=== PATIENT | female | born 1945 | race Caucasian/White ===

== ENCOUNTER 2020-03-04 09:17 | Inpatient (IN) | payer MEDICARE, BC ==
[2020-03-04] MEDS ORDERED: Sodium Chloride 0.9% 10 ML Syringe FLUSH PRN ×4 (09:55→10:30)
[2020-03-04] MEDS ORDERED: Acetaminophen 325 MG Tab PO PRN (09:55)
[2020-03-04] MEDS ORDERED: Sodium Chloride 0.9% 50 ML IV SCH (09:55)
[2020-03-04] MEDS: cefTRIAXone 1 GM Vial IVPUSH SCH (12:01)
[2020-03-04] MEDS: carBAMazepine 200 MG Tab PO SCH (21:42)
[2020-03-05] MEDS: Omeprazole 20 MG Cap.CR PO SCH (07:53)
[2020-03-05] MEDS: Potassium Chloride 10 MEQ Tab.ER PO SCH (08:44)
[2020-03-05] MEDS: carBAMazepine 200 MG Tab PO SCH ×2 (08:44→20:25)
[2020-03-05] MEDS: Sertraline 50 MG Tab PO SCH (08:44)
[2020-03-05] MEDS ORDERED: Azithromycin 250 MG Tab PO SCH (09:00)
[2020-03-05] MEDS: cefTRIAXone 1 GM Vial IVPUSH SCH (11:39)
[2020-03-06] MEDS: Omeprazole 20 MG Cap.CR PO SCH (07:56)
[2020-03-06 08:31] LABS: ANION GAP 12.2 mmol/L (5-15); CHLORIDE,CL 106 mmol/L (98-115); SODIUM,NA 139 mmol/L (136-145)
[2020-03-06] MEDS: Sertraline 50 MG Tab PO SCH (09:21)
[2020-03-06] MEDS: carBAMazepine 200 MG Tab PO SCH ×2 (09:21→20:27)
[2020-03-06] MEDS: Potassium Chloride 10 MEQ Tab.ER PO SCH (09:21)
[2020-03-06] MEDS: cefTRIAXone 1 GM Vial IVPUSH SCH (11:08)
[2020-03-07] MEDS: carBAMazepine 200 MG Tab PO SCH ×2 (08:08→20:24)
[2020-03-07] MEDS: Omeprazole 20 MG Cap.CR PO SCH (08:08)
[2020-03-07] MEDS: Sertraline 50 MG Tab PO SCH (08:09)
[2020-03-07] MEDS: Potassium Chloride 10 MEQ Tab.ER PO SCH (08:10)
[2020-03-07] MEDS: cefTRIAXone 1 GM Vial IVPUSH SCH (10:01)
[2020-03-08] MEDS: Omeprazole 20 MG Cap.CR PO SCH (08:04)
[2020-03-08] MEDS: carBAMazepine 200 MG Tab PO SCH ×2 (08:04→19:59)
[2020-03-08] MEDS: Potassium Chloride 10 MEQ Tab.ER PO SCH (08:05)
[2020-03-08] MEDS: Sertraline 50 MG Tab PO SCH (08:05)
[2020-03-08] MEDS: cefTRIAXone 1 GM Vial IVPUSH SCH (10:26)
[2020-03-08 13:45] LABS: ANION GAP 12.1 mmol/L (5-15); CHLORIDE,CL 104 mmol/L (98-115); SODIUM,NA 140 mmol/L (136-145)
[2020-03-08] MEDS ORDERED: Iopamidol 755 Mg/ML 75 ML Bottle IVPUSH ONE (15:27)
[2020-03-08] MEDS: Sodium Chloride 0.9% 50 ML IV SCH (16:19)
[2020-03-08] MEDS: Levofloxacin/Dextrose 5%-Water 500 MG in Premix Bag 1 BAG IV SCH (16:19)
[2020-03-08] MEDS ORDERED: Enoxaparin 100 MG/1 ML Syringe SUBCUT SCH (17:30)
[2020-03-08] MEDS: Levofloxacin/Dextrose 5%-Water 250 MG in Premix Bag 1 BAG IV SCH (17:37)
[2020-03-08] MEDS ORDERED: Warfarin 5 MG Tab PO SCH (18:00)
[2020-03-08] MEDS: Enoxaparin 100 MG/1 ML Syringe SUBCUT SCH (19:56)
[2020-03-09] MEDS: Omeprazole 20 MG Cap.CR PO SCH (08:06)
[2020-03-09] MEDS: Enoxaparin 100 MG/1 ML Syringe SUBCUT SCH ×2 (08:07→20:18)
[2020-03-09] MEDS: Sertraline 50 MG Tab PO SCH (08:13)
[2020-03-09] MEDS: Potassium Chloride 10 MEQ Tab.ER PO SCH (08:13)
[2020-03-09] MEDS: carBAMazepine 200 MG Tab PO SCH ×2 (08:14→20:11)
[2020-03-09] MEDS: Warfarin 5 MG Tab PO SCH (18:17)
[2020-03-10] MEDS: Omeprazole 20 MG Cap.CR PO SCH (07:30)
[2020-03-10] MEDS: Potassium Chloride 10 MEQ Tab.ER PO SCH (08:36)
[2020-03-10] MEDS: Sertraline 50 MG Tab PO SCH (08:36)
[2020-03-10] MEDS: carBAMazepine 200 MG Tab PO SCH ×2 (08:36→20:47)
[2020-03-10] MEDS: Enoxaparin 100 MG/1 ML Syringe SUBCUT SCH ×2 (08:37→20:48)
[2020-03-10] MEDS: Sodium Chloride 0.9% 50 ML IV SCH (16:01)
[2020-03-10] MEDS: Levofloxacin/Dextrose 5%-Water 500 MG in Premix Bag 1 BAG IV SCH (16:02)
[2020-03-10] MEDS: Levofloxacin/Dextrose 5%-Water 250 MG in Premix Bag 1 BAG IV SCH (17:08)
[2020-03-10] MEDS: Warfarin 5 MG Tab PO SCH (17:50)
[2020-03-11] MEDS: Omeprazole 20 MG Cap.CR PO SCH (07:29)
[2020-03-11] MEDS: Potassium Chloride 10 MEQ Tab.ER PO SCH (08:40)
[2020-03-11] MEDS: carBAMazepine 200 MG Tab PO SCH ×2 (08:40→20:35)
[2020-03-11] MEDS: Sertraline 50 MG Tab PO SCH (08:40)
[2020-03-11] MEDS: Enoxaparin 100 MG/1 ML Syringe SUBCUT SCH ×2 (08:41→21:15)
[2020-03-11] MEDS ORDERED: Warfarin 2.5 MG Tab PO ONE (18:00)
[2020-03-12] MEDS: Omeprazole 20 MG Cap.CR PO SCH (07:09)
[2020-03-12] MEDS: Sertraline 50 MG Tab PO SCH (08:31)
[2020-03-12] MEDS: Potassium Chloride 10 MEQ Tab.ER PO SCH (08:31)
[2020-03-12] MEDS: carBAMazepine 200 MG Tab PO SCH ×2 (08:31→20:16)
[2020-03-12] MEDS: Enoxaparin 100 MG/1 ML Syringe SUBCUT SCH ×2 (08:32→20:15)
[2020-03-12] MEDS: Levofloxacin/Dextrose 5%-Water 500 MG in Premix Bag 1 BAG IV SCH (15:50)
[2020-03-12] MEDS: Sodium Chloride 0.9% 50 ML IV SCH (15:50)
[2020-03-12] MEDS: Levofloxacin/Dextrose 5%-Water 250 MG in Premix Bag 1 BAG IV SCH (17:07)
[2020-03-12] MEDS ORDERED: Warfarin 2.5 MG Tab PO ONE (18:00)
[2020-03-12] MEDS ORDERED: Warfarin 5 MG Tab PO SCH (18:00)
[2020-03-12] MEDS: Simvastatin 20 MG Tab PO SCH (20:16)
[2020-03-13] MEDS: Omeprazole 20 MG Cap.CR PO SCH (06:29)
[2020-03-13] MEDS: carBAMazepine 200 MG Tab PO SCH ×2 (08:03→20:17)
[2020-03-13] MEDS: Enoxaparin 100 MG/1 ML Syringe SUBCUT SCH ×2 (08:03→20:17)
[2020-03-13] MEDS: Sertraline 50 MG Tab PO SCH (08:04)
[2020-03-13] MEDS: Potassium Chloride 10 MEQ Tab.ER PO SCH ×2 (08:05)
[2020-03-13] MEDS: Furosemide 20 MG Tab PO SCH (08:05)
[2020-03-13] MEDS ORDERED: Warfarin 5 MG Tab PO SCH (18:00)
[2020-03-13] MEDS: Simvastatin 20 MG Tab PO SCH (20:17)
[2020-03-14] MEDS: Enoxaparin 100 MG/1 ML Syringe SUBCUT SCH ×2 (07:23→20:00)
[2020-03-14] MEDS: Omeprazole 20 MG Cap.CR PO SCH (07:23)
[2020-03-14] MEDS: carBAMazepine 200 MG Tab PO SCH ×2 (08:58→20:00)
[2020-03-14] MEDS: Sertraline 50 MG Tab PO SCH (08:58)
[2020-03-14] MEDS: Potassium Chloride 10 MEQ Tab.ER PO SCH ×2 (08:59)
[2020-03-14] MEDS: Furosemide 20 MG Tab PO SCH (08:59)
[2020-03-14] MEDS: Levofloxacin/Dextrose 5%-Water 500 MG in Premix Bag 1 BAG IV SCH (16:38)
[2020-03-14] MEDS: Levofloxacin/Dextrose 5%-Water 250 MG in Premix Bag 1 BAG IV SCH (17:34)
[2020-03-14] MEDS ORDERED: Warfarin 2.5 MG Tab PO SCH (18:00)
[2020-03-14] MEDS: Simvastatin 20 MG Tab PO SCH (20:01)
[2020-03-15 07:41] LABS: ANION GAP 10.7 mmol/L (5-15); CHLORIDE,CL 105 mmol/L (98-107); SODIUM,NA 140 mmol/L (136-145)
[2020-03-15] MEDS: Omeprazole 20 MG Cap.CR PO SCH (07:57)
[2020-03-15] MEDS: Enoxaparin 100 MG/1 ML Syringe SUBCUT SCH ×2 (07:58→20:52)
[2020-03-15] MEDS: carBAMazepine 200 MG Tab PO SCH ×2 (10:35→20:51)
[2020-03-15] MEDS: Furosemide 20 MG Tab PO SCH (10:36)
[2020-03-15] MEDS: Potassium Chloride 10 MEQ Tab.ER PO SCH (10:36)
[2020-03-15] MEDS: Sertraline 50 MG Tab PO SCH (10:38)
[2020-03-15] MEDS ORDERED: Levofloxacin/Dextrose 5%-Water 500 MG in Premix Bag 1 BAG IV SCH (16:15)
[2020-03-15] MEDS ORDERED: Levofloxacin/Dextrose 5%-Water 250 MG in Premix Bag 1 BAG IV SCH (17:15)
[2020-03-15] MEDS: Warfarin 2.5 MG Tab PO SCH (17:57)
[2020-03-15] MEDS: Simvastatin 20 MG Tab PO SCH (20:52)
[2020-03-16] MEDS: Omeprazole 20 MG Cap.CR PO SCH (06:31)
[2020-03-16] MEDS: carBAMazepine 200 MG Tab PO SCH ×2 (08:04→20:44)
[2020-03-16] MEDS: Potassium Chloride 10 MEQ Tab.ER PO SCH (08:05)
[2020-03-16] MEDS: Sertraline 50 MG Tab PO SCH (08:05)
[2020-03-16] MEDS: Furosemide 20 MG Tab PO SCH (08:05)
[2020-03-16] MEDS: Enoxaparin 100 MG/1 ML Syringe SUBCUT SCH (08:06)
[2020-03-16] MEDS: Warfarin 2.5 MG Tab PO SCH (17:14)
[2020-03-16] MEDS: Simvastatin 20 MG Tab PO SCH (20:44)
[2020-03-17] MEDS: Omeprazole 20 MG Cap.CR PO SCH (08:00)
[2020-03-17] MEDS: Sertraline 50 MG Tab PO SCH (08:20)
[2020-03-17] MEDS: Potassium Chloride 10 MEQ Tab.ER PO SCH (08:20)
[2020-03-17] MEDS: Furosemide 20 MG Tab PO SCH (08:21)
[2020-03-17] MEDS: carBAMazepine 200 MG Tab PO SCH ×2 (08:22→20:07)
[2020-03-17] MEDS: Warfarin 2.5 MG Tab PO SCH (18:00)
[2020-03-17] MEDS: Simvastatin 20 MG Tab PO SCH (20:07)
[2020-03-18] MEDS: Omeprazole 20 MG Cap.CR PO SCH ×2 (06:25→06:30)
[2020-03-18] MEDS: Potassium Chloride 10 MEQ Tab.ER PO SCH (08:27)
[2020-03-18] MEDS: carBAMazepine 200 MG Tab PO SCH ×2 (08:28→20:10)
[2020-03-18] MEDS: Sertraline 50 MG Tab PO SCH (08:29)
[2020-03-18] MEDS: Furosemide 20 MG Tab PO SCH (08:29)
[2020-03-18] MEDS: Warfarin 2.5 MG Tab PO SCH (18:02)
[2020-03-18] MEDS: Simvastatin 20 MG Tab PO SCH (20:09)
[2020-03-19] MEDS: Omeprazole 20 MG Cap.CR PO SCH (08:00)
[2020-03-19] MEDS: Potassium Chloride 10 MEQ Tab.ER PO SCH (08:00)
[2020-03-19] MEDS: Sertraline 50 MG Tab PO SCH (08:01)
[2020-03-19] MEDS: carBAMazepine 200 MG Tab PO SCH ×2 (08:01→20:36)
[2020-03-19] MEDS: Furosemide 20 MG Tab PO SCH (08:01)
[2020-03-19] MEDS: Warfarin 2.5 MG Tab PO SCH (17:50)
[2020-03-19] MEDS: Simvastatin 20 MG Tab PO SCH (20:36)
[2020-03-20] MEDS: Omeprazole 20 MG Cap.CR PO SCH (07:38)
[2020-03-20] MEDS: carBAMazepine 200 MG Tab PO SCH ×2 (08:57→20:29)
[2020-03-20] MEDS: Sertraline 50 MG Tab PO SCH (08:57)
[2020-03-20] MEDS: Furosemide 20 MG Tab PO SCH (08:57)
[2020-03-20] MEDS: Potassium Chloride 10 MEQ Tab.ER PO SCH (08:57)
[2020-03-20] MEDS: Warfarin 2.5 MG Tab PO SCH (18:18)
[2020-03-20] MEDS: Simvastatin 20 MG Tab PO SCH (20:29)
[2020-03-21] MEDS: Omeprazole 20 MG Cap.CR PO SCH (07:44)
[2020-03-21] MEDS: Potassium Chloride 10 MEQ Tab.ER PO SCH (08:08)
[2020-03-21] MEDS: Furosemide 20 MG Tab PO SCH (08:08)
[2020-03-21] MEDS: carBAMazepine 200 MG Tab PO SCH ×2 (08:08→20:09)
[2020-03-21] MEDS: Sertraline 50 MG Tab PO SCH (08:08)
[2020-03-21] MEDS: Warfarin 2.5 MG Tab PO SCH (17:55)
[2020-03-21] MEDS: Simvastatin 20 MG Tab PO SCH (20:09)
[2020-03-22] MEDS: Sertraline 50 MG Tab PO SCH (08:00)
[2020-03-22] MEDS: carBAMazepine 200 MG Tab PO SCH (08:00)
[2020-03-22] MEDS: Furosemide 20 MG Tab PO SCH (08:00)
[2020-03-22] MEDS: Potassium Chloride 10 MEQ Tab.ER PO SCH (08:01)
[2020-03-22] MEDS: Omeprazole 20 MG Cap.CR PO SCH (08:01)
== END 2020-03-22 13:35 | disposition home health service (06) | DRG 193 ==
LOC: KA.MS 10:04 → UNDOADMIN 10:04 → KA.MS 12:48
PROVIDERS: ADMIT Nurse Practitioner Family; ATTEND Nurse Practitioner Family
DX: J18.9 Pneumonia, unspecified organism (principal); I26.99 Other pulmonary embolism without acute cor pulmonale; K44.9 Diaphragmatic hernia without obstruction or gangrene; K81.9 Cholecystitis, unspecified; R74.8 Abnormal levels of other serum enzymes; I89.0 Lymphedema, not elsewhere classified; E78.00 Pure hypercholesterolemia, unspecified; G50.0 Trigeminal neuralgia; E55.9 Vitamin D deficiency, unspecified; K21.9 Gastro-esophageal reflux disease without esophagitis; M81.0 Age-related osteoporosis without current pathological fracture; M17.0 Bilateral primary osteoarthritis of knee; F32.9 Major depressive disorder, single episode, unspecified; E66.9 Obesity, unspecified; Z79.01 Long term (current) use of anticoagulants; Z79.899 Other long term (current) drug therapy; Z20.822 Contact with and (suspected) exposure to COVID-19
CPT/HCPCS: 36415; 36416; 71046; 71275; 80048; 80053; 83880; 85025; 85027; 85379; 85610; 93005; 97110-GP; 97161-GP; 97530-GP; A9270-GY; J0696; J1650; J1956; Q9967; U0002

== ENCOUNTER 2020-10-17 16:04 | Observation (INO) | payer MEDICARE, BC ==
[2020-10-17] MEDS ORDERED: Sodium Chloride 0.9% 500 ML IV SCH (16:30)
[2020-10-17 16:47] LABS: ANION GAP 13.8 mmol/L (5-15); CHLORIDE,CL 103 mmol/L (98-107); SODIUM,NA 141 mmol/L (136-145)
--- NOTE | 2020-10-17 16:47 | EDM.PDOC ---
ED HPI GENERAL MEDICAL PROBLEM - General Chief Complaint: General Stated Complaint: WEAKNESS Time Seen by Provider: 10/17/20 16:08 Source of Information: Reports: Patient, Family - History of Present Illness INITIAL COMMENTS - FREE TEXT/NARRATIVE: Patient presents with her with her daughter who is the power of civil attorney for increased confusion and cognitive changes. Patient has been cognitively declini ng over the past month however from Saturday it has been progressively worsening. Patient did see her PCP in the clinic had a bunch of labs completed were all normal she did have a MRI done the brain which showed some changes and suggested vascular neurosurgeon consult. That appointment is made by Dr. Parra neurologist in [place] for November 15, 2020. Patient has recently positive UA with a confirmed culture of E. coli resistant to Bactrim in which she was started for Bactrim that was recently stopped and she started on Macrobid today. Patient has history of hypertension,mood disorder, and hx venous sufficiency on Lasix. Patient has history of PE last fall no blood thinners at this time. Patient has been falling more often, no known trauma or injury as result of the falls, and daughter states she is not safe at home. family & patient have not talked about senior living placement at [facility] but that is in the near future the daughter notes at bedside. The patient arrives alert orientated x2 in no distress no complaints no pain. She is unable to tell me what day it is but she does tell me it is the right month and knows the situation going on. - Related Data Allergies Allergy/AdvReac Type Severity Reaction Status Date / Time No Known Drug Allergies Allergy Cannot Verified 10/17/20 16:30 Remember Home Meds: Home Meds Furosemide [Lasix] 60 mg PO DAILY 02/29/20 [History] Omeprazole 20 mg PO ACBREAKFAST 02/29/20 [History] Potassium Chloride 10 meq PO DAILY 02/29/20 [History] Simvastatin 40 mg PO BEDTIME 02/29/20 [History] carBAMazepine [Carbamazepine] 300 mg PO BID 02/29/20 [History] Acetaminophen [Tylenol Extra Strength] 500 mg PO BID 10/17/20 [History] Calcium Carbonate/Vitamin D3 [Calcium Carbonate/Vitamin D 600 MG-200 Unit] 1 tab PO DAILY 10/17/20 [History] Cholecalciferol (Vitamin D3) [Vitamin D3] 2,000 unit PO DAILY 10/17/20 [History] Sertraline [Zoloft] 100 mg PO DAILY 10/17/20 [History] nitrofurantoin macrocrystaL [Nitrofurantoin] 100 mg PO BID 10/17/20 [History] Past Medical History - Past Health History Medical/Surgical History: Denies Medical/Surgical History Cardiovascular History: Reports: High Cholesterol Gastrointestinal History: Reports: GERD Musculoskeletal History: Reports: Osteoarthritis Neurological History: Reports: Neuropathy, Peripheral Psychiatric History: Reports: Depression Endocrine/Metabolic History: Reports: Obesity/BMI 30+ - Past Surgical History Cardiovascular Surgical History: Reports: None Social & Family History - Family History Family Medical History: Unobtainable ED ROS GENERAL - Review of Systems Review Of Systems: Comprehensive ROS is negative, except as noted in HPI. Constitutional: Reports: Weakness, Fatigue Respiratory: Reports: No Symptoms Cardiovascular: Reports: No Symptoms Musculoskeletal: Reports: No Symptoms Skin: Reports: No Symptoms Neurological: Reports: Confusion ED EXAM, GENERAL - Physical Exam Exam: See Below General Appearance: Alert, WD/WN, No Apparent Distress Eye Exam: Bilateral Eye: EOMI, PERRL Nose: Normal Inspection Throat/Mouth: Normal Inspection, Normal Oropharynx, Other (Dry lips) Head: Atraumatic, Normocephalic Neck: Normal Inspection, Supple, Non-Tender Respiratory/Chest: No Respiratory Distress, Lungs Clear, Chest Non-Tender, Decreased Breath Sounds (Decreased breath sounds in the bases) Cardiovascular: Normal Peripheral Pulses, Regular Rate, Rhythm, No Murmur Peripheral Pulses: 2+: Radial (L), Radial (R), Dorsalis Pedis (L), Dorsalis Pedis (R) GI/Abdominal: Soft, Non-Tender Back Exam: Normal Inspection, Full Range of Motion Extremities: Other (Bilateral leg nonpitting swelling, looks like lymphedema) Neurological: Alert, Oriented, CN II-XII Intact, No Motor/Sensory Deficits, Confused, Slow to Respond, Other (Confused at times, shaky when doing finger to nose test, is very drowsy.) Psychiatric: Normal Affect, Normal Mood Skin Exam: Warm, Dry, Intact. No: Wound/Incision Course - Vital Signs Last Recorded V/S: Last Vital Signs Temp 97.8 F 10/17/20 16:25 Pulse 84 10/17/20 16:25 Resp 18 10/17/20 16:25 BP 116/71 10/17/20 16:25 Pulse Ox 92 L 10/17/20 16:25 - Orders/Labs/Meds Orders: Active Orders 24 hr Category Date Time Status UA RFX PETR AND CULT IF INDIC [URIN] Stat Lab 10/17/20 16:08 Ordered Sodium Chloride 0.9% [Normal Saline] 500 ml Med 10/17/20 16:30 Ordered IV .BOLUS Sodium Chloride 0.9% [Saline Flush] Med 10/17/20 16:09 Ordered 10 ml FLUSH Q8HR PRN Saline Lock Insert [OM.PC] Routine Oth 10/17/20 16:09 Ordered Medication Orders Sodium Chloride (Normal Saline) 500 mls @ 999 mls/hr IV .BOLUS VIKRAM Last Admin: 10/17/20 17:01 Dose: 999 mls/hr Documented by: EMMANUELLE Sodium Chloride (Sodium Chloride 0.9% 10 Ml Syringe) 10 ml FLUSH Q8HR PRN PRN Reason: keep vein open Last Admin: 10/17/20 17:36 Dose: 10 ml Documented by: Admin: 10/17/20 17:01 Dose: 10 ml Documented by: EMMANUELLE Labs: Laboratory Tests 10/17/20 10/17/20 10/17/20 Range/Units 16:08 16:08 16:08 WBC 6.78 (5.00-10.00) 10^3/uL RBC 4.48 (3.80-5.50) 10^6/uL Hgb 13.2 D (12.0-16.0) g/dL Hct 40.5 (37.0-47.0) % MCV 90.4 D (82.0-92.0) fL MCH 29.5 (27.0-31.0) pg MCHC 32.6 (32.0-36.0) g/dL RDW 14.8 H (11.5-14.5) % Plt Count 164 D (150-400) 10^3/uL MPV 11.2 H (7.4-10.4) fL Sodium 141 (136-145) mmol/L Potassium 3.6 (3.5-5.1) mmol/L Chloride 103 (98-107) mmol/L Carbon Dioxide 27.8 (21.0-32.0) mmol/L Anion Gap 13.8 (5-15) mmol/L BUN 11 (7-18) mg/dL Creatinine 0.65 (0.51-1.17) mg/dL Est Cr Clr Drug Dosing 73.84 mL/min Estimated GFR (MDRD) > 60 mL/min Glucose 130 (70-140) mg/dL Lactic Acid 1.6 (0.4-2.0) mmol/L Calcium 8.5 L (8.7-10.3) mg/dL Total Bilirubin 0.2 (0.2-1.0) mg/dL AST 26 (15-37) U/L ALT 19 (14-63) U/L Alkaline Phosphatase 102 (46-116) U/L Total Protein 6.8 (6.4-8.2) g/dL Albumin 3.32 L (3.40-5.00) g/dL SARS CoV-2 RNA Rapid JASSI (NEGATIVE) 10/17/20 Range/Units 16:55 WBC (5.00-10.00) 10^3/uL RBC (3.80-5.50) 10^6/uL Hgb (12.0-16.0) g/dL Hct (37.0-47.0) % MCV (82.0-92.0) fL MCH (27.0-31.0) pg MCHC (32.0-36.0) g/dL RDW (11.5-14.5) % Plt Count (150-400) 10^3/uL MPV (7.4-10.4) fL Sodium (136-145) mmol/L Potassium (3.5-5.1) mmol/L Chloride (98-107) mmol/L Carbon Dioxide (21.0-32.0) mmol/L Anion Gap (5-15) mmol/L BUN (7-18) mg/dL Creatinine (0.51-1.17) mg/dL Est Cr Clr Drug Dosing mL/min Estimated GFR (MDRD) mL/min Glucose (70-140) mg/dL Lactic Acid (0.4-2.0) mmol/L Calcium (8.7-10.3) mg/dL Total Bilirubin (0.2-1.0) mg/dL AST (15-37) U/L ALT (14-63) U/L Alkaline Phosphatase (46-116) U/L Total Protein (6.4-8.2) g/dL Albumin (3.40-5.00) g/dL SARS CoV-2 RNA Rapid JASSI Negative (NEGATIVE) Meds: Medications Generic Name Dose Route Start Last Admin Trade Name Frenasreen PRN Reason Stop Dose Admin Sodium Chloride 500 mls @ 999 mls/hr 10/17/20 16:30 10/17/20 17:01 Normal Saline IV 999 mls/hr .BOLUS VIKRAM Administration Sodium Chloride 10 ml 10/17/20 16:09 10/17/20 17:36 Sodium Chloride 0.9% 10 Ml Syringe FLUSH 10 ml Q8HR PRN Administration keep vein open Discontinued Medications Generic Name Dose Route Start Last Admin Trade Name Freq PRN Reason Stop Dose Admin Ceftriaxone Sodium 1 gm 10/17/20 17:13 10/17/20 17:32 Ceftriaxone 1 Gm Vial IVPUSH 10/17/20 17:14 1 gm ONETIME ONE Administration - Re-Assessments/Exams Free Text/Narrative Re-Assessment/Exam: 10/17/20 16:49 SpO2 90-92% on room air. No history of lung problems besides a previous PE last February, not a smoker. Chest x-ray ordered she does have slight diminished lung sounds at bases no cold symptoms. CT head without was ordered. I did receive a full report from her PCP Dena Mcguire at [facility]. 10/17/20 17:20 Labs returned no changes from previous labs. Normal electrolytes normal renal and kidney function. Normal lactic. No leukocytosis. Patient is very drowsy sleeping but is able to open her eyes with verbal stimuli and respond. Patient's oxygen saturations on room air dipped down to 89 to 90%. Placed on 2 L now that is 98% on room air. Chest x-ray reveals questionable infiltrate on left lower lobe. 10/17/20 18:05 Dr. Janes Parry accepted for observation for UTI and debility. Family agrees wit h observation. Patient was weaned off oxygen back down to 89 to 90% on room air. 2 L placed patient back on 97% on room air. Heart rate sinus been 70s less blood pressure 103/76 with a MAP of 89. Afebrile comfortable sitting up in bed having a sandwich. Departure - Departure Time of Disposition: 18:02 Disposition: Refer to Observation Clinical Impression: Debility UTI (urinary tract infection) Qualifiers: Urinary tract infection type: site unspecified Hematuria presence: without hematuria Qualified Code(s): N39.0 - Urinary tract infection, site not specified - Discharge Information *PRESCRIPTION DRUG MONITORING PROGRAM REVIEWED*: No *COPY OF PRESCRIPTION DRUG MONITORING REPORT IN PATIENT MONSE: No Referrals: Dena Mcguire [employer] [Primary Care Provider] - Forms: ED Department Discharge Sepsis Event Note (ED) - Evaluation Sepsis Screening Result: No Definite Risk - Focused Exam Vital Signs: Vital Signs Temp Pulse Resp BP Pulse Ox 10/17/20 16:25 97.8 F 84 18 116/71 92 L - My Orders Last 24 Hours: My Active Orders 10/17/20 16:08 UA RFX PETR AND CULT IF INDIC [URIN] Stat 10/17/20 16:09 Sodium Chloride 0.9% [Saline Flush] 10 ml FLUSH Q8HR PRN Saline Lock Insert [OM.PC] Routine 10/17/20 16:30 Sodium Chloride 0.9% [Normal Saline] 500 ml IV .BOLUS - Assessment/Plan Last 24 Hours: My Active Orders 10/17/20 16:08 UA RFX PETR AND CULT IF INDIC [URIN] Stat 10/17/20 16:09 Sodium Chloride 0.9% [Saline Flush] 10 ml FLUSH Q8HR PRN Saline Lock Insert [OM.PC] Routine 10/17/20 16:30 Sodium Chloride 0.9% [Normal Saline] 500 ml IV .BOLUS
[2020-10-17] MEDS: Sodium Chloride 0.9% 10 ML Syringe FLUSH PRN ×2 (17:01→17:36)
[2020-10-17] MEDS ORDERED: cefTRIAXone 1 GM Vial IVPUSH ONE (17:13)
--- NOTE | 2020-10-17 17:23 | CT ---
[id number] CT/CT Head WO IV EXAM: NONCONTRAST HEAD CT INDICATION: CONFUSION. COMPARISON: None. DISCUSSION: Empty sella. No hydrocephalus. Chronic lacunar infarct right cerebellar hemisphere. Bilateral basal ganglia and cortical parieto-occipital calcifications. Mild chronic small vessel ischemic changes. No mass effect or midline shift. No acute hemorrhage or extra-axial fluid collection. No acute territorial infarct is identified. Fluid and frothy secretions in the left maxillary sinus and frothy secretions in the left frontal sinus compatible with acute sinusitis. Mild mucosal thickening in the right maxillary sinus. IMPRESSION: 1. No acute intracranial findings. Multiple chronic findings as detailed. 2. Acute left frontal and maxillary sinusitis. Anthony Dubois MD 10/17/20 [id number] Thank you for allowing us to participate in the care of your patient.
--- NOTE | 2020-10-17 17:25 | CR ---
[id number] RAD/RAD Chest PA or AP 1V EXAM: FRONTAL CHEST INDICATION: LOWER 02 SATS. COMPARISON: March 08, 2020. 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 Bibasilar opacities relating in part to volume loss, but concomitant infiltrates are not excluded. Borderline heart size without evidence of edema. IMPRESSION: 1. Bibasilar opacities likely representing predominantly atelectasis, but infiltrates are not excluded. Anthony Dubois MD 10/17/20 [id number] Thank you for allowing us to participate in the care of your patient.
[2020-10-17] MEDS ORDERED: carBAMazepine 200 MG Tab PO SCH (21:00)
[2020-10-17] MEDS ORDERED: Cholecalciferol (Vitamin D3) 25 MCG Tab PO SCH (21:00)
[2020-10-17] MEDS: Acetaminophen 500 MG Tab PO SCH (22:44)
[2020-10-17] MEDS: CARBAMAZEPINE 200 MG PO SCH (22:47)
[2020-10-18] MEDS: OMEPRAZOLE 20 MG PO SCH ×2 (06:14→06:30)
[2020-10-18] MEDS ORDERED: Omeprazole 20 MG Cap.CR PO SCH (07:30)
[2020-10-18] MEDS: CARBAMAZEPINE 200 MG PO SCH (08:35)
[2020-10-18] MEDS: Acetaminophen 500 MG Tab PO SCH (08:35)
[2020-10-18] MEDS ORDERED: FUROSEMIDE 40 MG PO SCH (09:00)
[2020-10-18] MEDS ORDERED: Potassium Chloride 10 MEQ Tab.ER PO SCH (09:00)
[2020-10-18] MEDS ORDERED: SERTRALINE 50 MG PO SCH ×2 (09:00)
[2020-10-18] MEDS ORDERED: SIMVASTATIN 40 MG PO SCH (09:00)
[2020-10-18] MEDS ORDERED: Sertraline 50 MG Tab PO SCH (09:00)
[2020-10-18] MEDS ORDERED: Potassium Chloride 10 MEQ Tab.ER**PT OWN PO SCH (09:00)
[2020-10-18] MEDS ORDERED: Simvastatin 20 MG Tab PO SCH (09:00)
--- NOTE | 2020-10-18 10:25 | PCM.HP.2 ---
H&P History of Present Illness - General Date of Service: 10/18/20 Admit Problem/Dx: Admission Diagnosis/Problem Admission Diagnosis/Problem UTI, Urinary tract infectious disease - Related Data Allergies/Adverse Reactions: Allergies Allergy/AdvReac Type Severity Reaction Status Date / Time No Known Drug Allergies Allergy Cannot Verified 10/17/20 16:30 Remember Home Medications: Home Meds Furosemide [Lasix] 60 mg PO DAILY 02/29/20 [History] Omeprazole 20 mg PO ACBREAKFAST 02/29/20 [History] Potassium Chloride 20 meq PO DAILY 02/29/20 [History] Simvastatin 40 mg PO DAILY 02/29/20 [History] carBAMazepine [Carbamazepine] 300 mg PO BID 02/29/20 [History] Acetaminophen [Tylenol Extra Strength] 500 mg PO BID 10/17/20 [History] Cholecalciferol (Vitamin D3) [Vitamin D3] 2,000 unit PO BEDTIME 10/17/20 [History] Nitrofurantoin [place]/Macrocryst [Nitrofurantoin [place]-MCR] 100 mg PO BID cap 10/18/20 [Rx] Sertraline [Zoloft] 100 mg PO DAILY tablet 10/18/20 [Rx] Past Medical History - Past Health History Medical/Surgical History: Denies Medical/Surgical History HEENT History: Reports: Cataract, Impaired Vision, Sinusitis Cardiovascular History: Reports: Blood Clots/VTE/DVT, High Cholesterol Respiratory History: Reports: PE Gastrointestinal History: Reports: Chronic Constipation, Chronic Diarrhea, GERD, Hiatal Hernia Genitourinary History: Reports: Urinary Incontinence [employer] INSPECTOR History: Reports: Musculoskeletal History: Reports: Osteoarthritis Neurological History: Reports: Neuropathy, Peripheral Psychiatric History: Reports: Dementia, Depression Endocrine/Metabolic History: Reports: Obesity/BMI 30+ Dermatologic History: Reports: None - Infectious Disease History Infectious Disease History: Reports: Chicken Pox, Shingles - Past Surgical History Head Surgeries/Procedures: Reports: None HEENT Surgical History: Reports: Cataract Surgery Cardiovascular Surgical History: Reports: None Respiratory Surgical History: Reports: None Female Surgical History: Reports: Tubal Ligation Neurological Surgical History: Reports: None Musculoskeletal Surgical History: Reports: None Social & Family History - Family History Family Medical History: Unobtainable - Tobacco Use Tobacco Use Status *Q: Never Tobacco User Second Hand Smoke Exposure: Yes - Caffeine Use Caffeine Use: Reports: Energy Drinks, Soda - Recreational Drug Use Recreational Drug Use: No H&P Review of Systems - Review of Systems: Review Of Systems: Unable To Obtain (cognitive impairment) Reason Not Obtained: dementia, significant recent cognitive decline Exam - Exam Exam: See Below - Vital Signs Vital Signs: Last Vital Signs Temp 98.4 F 10/18/20 06:25 Pulse 81 10/18/20 06:25 Resp 18 10/18/20 06:25 BP 116/66 10/18/20 06:25 Pulse Ox 92 L 10/18/20 06:25 Weight: 167 lb - Exam Quality Assessment: Supplemental Oxygen (PRN to maintain O2 sat > 90%) General: Cooperative. No: Oriented, Mild Distress HEENT: Conjunctiva Clear, Mucosa Moist & [place], Other (dentures loose within mouth) Neck: Supple Lungs: Normal Respiratory Effort, Decreased Breath Sounds. No: Crackles, Rhonchi, Wheezing Cardiovascular: Regular Rate, Regular Rhythm, Normal S1, Normal S2 GI/Abdominal Exam: Normal Bowel Sounds, Soft, Non-Tender, No Distention (Female) Exam: Deferred Rectal (Female) Exam: Deferred Back Exam: Normal Inspection Extremities: Normal Capillary Refill, Pedal Edema (+1 bilaterally), Leg Pain Peripheral Pulses: 1+: Dorsalis Pedis (L), Dorsalis Pedis (R) Skin: Warm, Dry, Intact Neuro Extensive - Mental Status: Normal Mood/Affect, Disorientation to Place, Disorientation to Time, Slow Response to Commands Psychiatric: Other (withdrawn) - Patient Data Lab Results Last 24 hrs: Laboratory Results - last 24 hr 10/17/20 10/17/20 10/17/20 Range/Units 16:08 16:08 16:08 WBC 6.78 (5.00-10.00) 10^3/uL RBC 4.48 (3.80-5.50) 10^6/uL Hgb 13.2 D (12.0-16.0) g/dL Hct 40.5 (37.0-47.0) % MCV 90.4 D (82.0-92.0) fL MCH 29.5 (27.0-31.0) pg MCHC 32.6 (32.0-36.0) g/dL RDW 14.8 H (11.5-14.5) % Plt Count 164 D (150-400) 10^3/uL MPV 11.2 H (7.4-10.4) fL Sodium 141 (136-145) mmol/L Potassium 3.6 (3.5-5.1) mmol/L Chloride 103 (98-107) mmol/L Carbon Dioxide 27.8 (21.0-32.0) mmol/L Anion Gap 13.8 (5-15) mmol/L BUN 11 (7-18) mg/dL Creatinine 0.65 (0.51-1.17) mg/dL Est Cr Clr Drug Dosing 73.84 mL/min Estimated GFR (MDRD) > 60 mL/min Glucose 130 (70-140) mg/dL Lactic Acid 1.6 (0.4-2.0) mmol/L Calcium 8.5 L (8.7-10.3) mg/dL Total Bilirubin 0.2 (0.2-1.0) mg/dL AST 26 (15-37) U/L ALT 19 (14-63) U/L Alkaline Phosphatase 102 (46-116) U/L Total Protein 6.8 (6.4-8.2) g/dL Albumin 3.32 L (3.40-5.00) g/dL SARS CoV-2 RNA Rapid JASSI (NEGATIVE) 10/17/20 Range/Units 16:55 WBC (5.00-10.00) 10^3/uL RBC (3.80-5.50) 10^6/uL Hgb (12.0-16.0) g/dL Hct (37.0-47.0) % MCV (82.0-92.0) fL MCH (27.0-31.0) pg MCHC (32.0-36.0) g/dL RDW (11.5-14.5) % Plt Count (150-400) 10^3/uL MPV (7.4-10.4) fL Sodium (136-145) mmol/L Potassium (3.5-5.1) mmol/L Chloride (98-107) mmol/L Carbon Dioxide (21.0-32.0) mmol/L Anion Gap (5-15) mmol/L BUN (7-18) mg/dL Creatinine (0.51-1.17) mg/dL Est Cr Clr Drug Dosing mL/min Estimated GFR (MDRD) mL/min Glucose (70-140) mg/dL Lactic Acid (0.4-2.0) mmol/L Calcium (8.7-10.3) mg/dL Total Bilirubin (0.2-1.0) mg/dL AST (15-37) U/L ALT (14-63) U/L Alkaline Phosphatase (46-116) U/L Total Protein (6.4-8.2) g/dL Albumin (3.40-5.00) g/dL SARS CoV-2 RNA Rapid JASSI Negative (NEGATIVE) Result Diagrams: 10/17/20 16:08 10/17/20 16:08 Sepsis Event Note - Evaluation Sepsis Screening Result: No Definite Risk - Focused Exam Vital Signs: Vital Signs Temp Pulse Resp BP Pulse Ox Pulse Ox 10/18/20 06:25 98.4 F 81 18 116/66 92 L 10/17/20 23:10 93 L Problem List Initiated/Reviewed/Updated: Yes Orders Last 24hrs: Active Orders 24 hr Category Date Time Status Admission Status [Patient Status] [ADT] Routine ADT 10/17/20 18:03 Active Intake and Output [RC] 1400,2200,0600 Care 10/17/20 21:02 Active Oxygen Therapy [RC] .PRN Care 10/17/20 21:02 Active Up With Assistance [RC] DAILY Care 10/17/20 21:02 Active VTE/DVT Education [RC] DAILY Care 10/17/20 21:02 Active Vital Signs [RC] 03,07,11,15,19,23 Care 10/17/20 21:02 Active Consult to Case Management/Shed Boss [CONS] Cons 10/17/20 23:08 Active Routine Consult to Dietary [Consult to Electric Wirer] [CONS] Cons 10/18/20 09:48 Active Routine PT Evaluation and Treatment [CONS] Routine Cons 10/17/20 21:02 Active CARBAMAZEPINE [REF] Routine Lab 10/17/20 21:06 Ordered Acetaminophen [Tylenol Extra Strength] Med 10/17/20 21:00 Active 500 mg PO BID Cholecalciferol (Vitamin D3) [Vitamin D3] Med 10/17/20 21:00 Active 50 mcg PO BEDTIME Furosemide [Lasix] Med 10/18/20 09:00 Active 60 mg PO DAILY Non-Formulary Medication [NF Drug] Med 10/18/20 09:00 Active 40 each PO DAILY Omeprazole Med 10/18/20 07:30 Active 20 mg PO ACBREAKFAST Potassium Chloride [Klor-Con 10] Med 10/18/20 09:00 Active 20 meq PO DAILY Sertraline [Zoloft] Med 10/18/20 09:00 Active 100 mg PO DAILY Sodium Chloride 0.9% [Saline Flush] Med 10/17/20 16:09 Active 10 ml FLUSH Q8HR PRN carBAMazepine [TEGretol Tab] Med 10/17/20 22:30 Active 300 mg PO BID Saline Lock Insert [OM.PC] Routine Oth 10/17/20 16:09 Ordered Code Status [Resuscitation Status] Stat Resus Stat 10/17/20 18:05 Ordered Medication Orders Acetaminophen (Acetaminophen 500 Mg Tab) 500 mg PO BID [facility] Last Admin: 10/18/20 08:35 Dose: 500 mg Documented by: Admin: 10/17/20 22:44 Dose: 500 mg Documented by: RUDOLPH Carbamazepine (Carbamazepine 200 Mg TabPt Own) 300 mg PO BID [facility] Last Admin: 10/18/20 08:35 Dose: 300 mg Documented by: Admin: 10/17/20 22:47 Dose: 300 mg Documented by: RUDOLPH Cholecalciferol (Cholecalciferol (Vitamin D3) 25 Mcg Tab) 50 mcg PO BEDTIME [facility] Last Admin: 10/17/20 22:44 Dose: 50 mcg Documented by: RUDOLPH Furosemide (Furosemide 40 Mg Pt Own) 60 mg PO DAILY [facility] Last Admin: 10/18/20 08:36 Dose: 60 mg Documented by: EMMY Simvastatin 40mg (Pt Own) 40 each PO DAILY [facility] Last Admin: 10/18/20 08:35 Dose: 40 each Documented by: EMMY Omeprazole (Omeprazole 20 Mg Cap.Cr Pt Own) 20 mg PO ACBREAKFAST [facility] Last Admin: 10/18/20 06:30 Dose: Not Given Documented by: Admin: 10/18/20 06:14 Dose: 20 mg Documented by: RUDOLPH Potassium Chloride (Potassium Chloride 10 Meq Tab.ErPt Own) 20 meq PO DAILY [facility] Last Admin: 10/18/20 08:35 Dose: 20 meq Documented by: EMMY Sertraline HCl (Sertraline 50 Mg TabPt Own) 100 mg PO DAILY [facility] Last Admin: 10/18/20 08:36 Dose: 100 mg Documented by: EMMY Sodium Chloride (Sodium Chloride 0.9% 10 Ml Syringe) 10 ml FLUSH Q8HR PRN PRN Reason: keep vein open Last Admin: 10/17/20 17:36 Dose: 10 ml Documented by: Admin: 10/17/20 17:01 Dose: 10 ml Documented by: EMMANUELLE Assessment/Plan Comment:: HPI summary: Mary is a 75yF patient who was recently seen by Dena Mcguire APRN at [facility] in [place] for concern of UTI. She was started on a course of bactrim for same. Urine cultures resulted with resistance to bactrim and prescription was changed yesterday, 10/17/20 to macrobid. Patient had yet to start the macrobid when she was brought to the ER by her daughter for concern of further cognitive and functional decline over the weekend. Patient has been declining in the home environment and her family has been in contact with [facility] in [place] due to concerns for lack of safety and ability to complete ADL's at home as well as increased falls recently. MRI recently completed at [facility] on 09/29/20 indicated no acute findings, AV formation identified which prompted vascular neurosurgery consultation which is scheduled for 11/15/20 in [place]. ED course: VSS. Labs overall unremarkable. WBC 6.78, Hgb 13.2, lactic acid 1.6. Na 141, K 3.6, BUN 11, Creatinine 0.65. CXR completed and unimpressive - stable known hiatal hernia and bibasilar atelectasis. Head CT w/o negative for acute process: chronic lacunar infarct and chronic small vessel changes. 1g rocephin given in ER for known UTI and resistance to bactrim. Patient to be admitted under observation status for social security benefits interviewer consult to assist with possible SNF placement and PT consult for weakness. Hospital course: 10/18/20: Patient quite tired this morning, resting in the recliner. Patient unable to answer questions this morning, known significant cognitive decline with intermittent periods of improved clarity. Patient able to verbalize her name is Mary and she lives in [place]. Carbamazepine level pending to R/O toxicity. Vitals stable. Patient was on 1L O2 overnight, O2 stable on room air this morning. director of medical staff services checked on possible placement at [facility] in [place], however they only had a shared room available and without COVID vaccination they require a 14 day quarantine period. Family was agreeable to requesting admission to [facility] under the COVID waiver which was approved as patient does not have three midnights of inpatient status prior to admission. PT consult to be completed prior to discharge to SNF planned for later today. Hospitalization problems and plan: # Urinary tract infection - Urine culture from [facility] indicated resistance to initial antibiotic of bactrim, patient received 1g of rocephin in ER. E-coli species identified in urine culture sensitive to macrobid. - Start macrobid 100mg PO BID x 5 days this evening # Weakness # Recent falls at home - PT consult # Debility with recent functional decline - Family requesting intermediate placement due to safety concerns at home and rather rapid cognitive and functional decline in the home environment - director of medical staff services consult Chronic, stable conditions: # Venous insufficiency - Continue lasix 60mg PO daily with KCl 20 mEq PO daily for K supplementation # hypercholesterolemia - continue simvastatin 40mg PO HS # Dementia # Trigeminal neuralgia - continue carbamazepine 300mg PO BID; carbamazepine level pending. # GERD without esophagitis - continue omeprazole 20mg PO daily # Osteoarthritis of both knees - continue tylenol 500mg PO BID # Depression - continue sertraline 100mg PO daily # Osteoporosis - Continue caltrate 600 + D # Hiatal hernia # Vitamin D deficiency # Obesity, BMI 31.9 # Hx of Pulmonary embolism Hospitalization details: # FEN: Oral fluids # PPX: No DVT ppx, home prilosec # Code status: CPR only, DNI # Emergency contact: Daughter, Juliette; updated per Mar Q. # Disposition: Patient accepted to [facility] for admission today. Patient to have PT consultation prior to discharge. Will continue same home meds for now.
--- NOTE | 2020-10-18 12:08 | PCM.DCSUM1 ---
Discharge Summary - Hospital Course Free Text/Narrative:: Date of admission: 10/17/20 Date of discharge: 10/18/20 Admission diagnoses: # UTI # Weakness # Debility Discharge diagnoses: # Venous insufficiency - Continue lasix 60mg PO daily with KCl 20 mEq PO daily for K supplementation # hypercholesterolemia - continue simvastatin 40mg PO HS # Dementia # Trigeminal neuralgia - continue carbamazepine 300mg PO BID; carbamazepine l evel pending. # UTI - Continue full course of macrobid 100mg PO BID x 5 days, to start evening of 10/18/20 as patient had 1g Rocephin in ER # GERD without esophagitis - continue omeprazole 20mg PO daily # Osteoarthritis of both knees - continue tylenol 500mg PO BID # Depression - continue sertraline 100mg PO daily # Osteoporosis - Continue caltrate 600 + D # Weakness # Debility # Hiatal hernia # Vitamin D deficiency # Obesity, BMI 31.9 # Hx of Pulmonary embolism Hospital course: HPI summary: Mary is a 75yF patient who was recently seen by Dena Mcguire APRN at [facility] in [place] for concern of UTI. She was started on a course of bactrim for same. Urine cultures resulted with resistance to bactrim and prescription was changed yesterday, 10/17/20 to macrobid. Patient had yet to start the macrobid when she was brought to the ER by her daughter for concern of further cognitive and functional decline over the weekend. Patient has been declining in the home environment and her family has been in contact with [facility] in [place] due to concerns for lack of safety and ability to complete ADL's at home as well as increased falls recently. MRI recently completed at [facility] on 09/29/20 indicated no acute findings, AV formation identified which prompted vascular neurosurgery consultation which is scheduled for 11/15/20 in [place]. ED course: VSS. Labs overall unremarkable. WBC 6.78, Hgb 13.2, lactic acid 1.6. Na 141, K 3.6, BUN 11, Creatinine 0.65. CXR completed and unimpressive - stable known hiatal hernia and bibasilar atelectasis. Head CT w/o negative for acute process: chronic lacunar infarct and chronic small vessel changes. 1g rocephin given in ER for known UTI and resistance to bactrim. Patient to be admitted under observation status for foster care social worker consult to assist with possible SNF placement and PT consult for weakness. Hospital course: 10/18/20: Patient quite tired this morning, resting in the recliner. Patient unable to answer questions this morning, known significant cognitive decline with intermittent periods of improved clarity. Patient able to verbalize her name is Mary and she lives in [place]. Carbamazepine level pending to R/O toxicity. Vitals stable. Patient was on 1L O2 overnight, O2 stable on room air this morning. director of rehabilitative services checked on possible placement at [facility] in [place], however they only had a shared room available and without COVID vaccination they require a 14 day quarantine period. Family was agreeable to re questing admission to [facility] under the COVID waiver which was approved as patient does not have three midnights of inpatient status prior to admission. PT consult to be completed prior to discharge to SNF planned for later today. Discharge and follow-up recommendations: - Discharge to [facility] SNF - New medications at discharge: Continue prior home medications. Course of m carter for UTI initially treated with bactrim, urine culture indicated resistance. - Follow-up on long-term rounds - Discharge Data Discharge Date: 10/18/20 Discharge Disposition: DC/Tfer to SNF 03 Condition: Good - Referral to Home Health Primary Care Physician: Dena Mcguire NP - Patient Summary/Data Consults: Consultations 10/17/20 21:02 PT Evaluation and Treatment [CONS] Routine 10/17/20 23:08 Consult to Case Management/Signal Wirer [CONS] Routine 10/18/20 09:48 Consult to Dietary [Consult to Mineral Resources Inspector] [CONS] Routine - Patient Instructions Diet: Regular Diet as Tolerated Driving: Do Not Drive Showering/Bathing: May Shower Notify Provider of: Fever, Increased Pain - Discharge Plan *PRESCRIPTION DRUG MONITORING PROGRAM REVIEWED*: Not Applicable *COPY OF PRESCRIPTION DRUG MONITORING REPORT IN PATIENT MONSE: Not Applicable Home Medications: Home Meds Furosemide [Lasix] 60 mg PO DAILY 02/29/20 [History] Omeprazole 20 mg PO ACBREAKFAST 02/29/20 [History] Potassium Chloride 20 meq PO DAILY 02/29/20 [History] Simvastatin 40 mg PO DAILY 02/29/20 [History] carBAMazepine [Carbamazepine] 300 mg PO BID 02/29/20 [History] Acetaminophen [Tylenol Extra Strength] 500 mg PO BID 10/17/20 [History] Cholecalciferol (Vitamin D3) [Vitamin D3] 2,000 unit PO BEDTIME 10/17/20 [History] Nitrofurantoin [place]/Macrocryst [Nitrofurantoin [place]-MCR] 100 mg PO BID cap 10/18/20 [Rx] Sertraline [Zoloft] 100 mg PO DAILY tablet 10/18/20 [Rx] Oxygen Therapy Mode: Room Air Maintain SpO2% greater than: 90 (PRN) Referrals: Madisyn Posadas RADIATION ONCOLOGY NURSE [Nurse Practitioner] - (Follow-up on next long-term rounds.) - Discharge Summary/Plan Comment DC Time >30 min.: Yes - General Info Date of Service: 10/18/20 Admission Dx/Problem (Free Text: See H&P for details - Patient Data Vitals - Most Recent: Last Vital Signs Temp 97.2 F 10/18/20 11:00 Pulse 78 10/18/20 11:00 Resp 20 10/18/20 11:00 BP 105/67 10/18/20 11:00 Pulse Ox 93 L 10/18/20 11:00 Weight - Most Recent: 167 lb I&O - Last 24 hours: Intake & Output 10/17/20 10/18/20 10/18/20 22:59 06:59 14:59 Intake Total 50 Balance 50 Lab Results - Last 24 hrs: Laboratory Results - last 24 hr 10/17/20 10/17/20 10/17/20 Range/Units 16:08 16:08 16:08 WBC 6.78 (5.00-10.00) 10^3/uL RBC 4.48 (3.80-5.50) 10^6/uL Hgb 13.2 D (12.0-16.0) g/dL Hct 40.5 (37.0-47.0) % MCV 90.4 D (82.0-92.0) fL MCH 29.5 (27.0-31.0) pg MCHC 32.6 (32.0-36.0) g/dL RDW 14.8 H (11.5-14.5) % Plt Count 164 D (150-400) 10^3/uL MPV 11.2 H (7.4-10.4) fL Sodium 141 (136-145) mmol/L Potassium 3.6 (3.5-5.1) mmol/L Chloride 103 (98-107) mmol/L Carbon Dioxide 27.8 (21.0-32.0) mmol/L Anion Gap 13.8 (5-15) mmol/L BUN 11 (7-18) mg/dL Creatinine 0.65 (0.51-1.17) mg/dL Est Cr Clr Drug Dosing 73.84 mL/min Estimated GFR (MDRD) > 60 mL/min Glucose 130 (70-140) mg/dL Lactic Acid 1.6 (0.4-2.0) mmol/L Calcium 8.5 L (8.7-10.3) mg/dL Total Bilirubin 0.2 (0.2-1.0) mg/dL AST 26 (15-37) U/L ALT 19 (14-63) U/L Alkaline Phosphatase 102 (46-116) U/L Total Protein 6.8 (6.4-8.2) g/dL Albumin 3.32 L (3.40-5.00) g/dL SARS CoV-2 RNA Rapid JASSI (NEGATIVE) 10/17/20 Range/Units 16:55 WBC (5.00-10.00) 10^3/uL RBC (3.80-5.50) 10^6/uL Hgb (12.0-16.0) g/dL Hct (37.0-47.0) % MCV (82.0-92.0) fL MCH (27.0-31.0) pg MCHC (32.0-36.0) g/dL RDW (11.5-14.5) % Plt Count (150-400) 10^3/uL MPV (7.4-10.4) fL Sodium (136-145) mmol/L Potassium (3.5-5.1) mmol/L Chloride (98-107) mmol/L Carbon Dioxide (21.0-32.0) mmol/L Anion Gap (5-15) mmol/L BUN (7-18) mg/dL Creatinine (0.51-1.17) mg/dL Est Cr Clr Drug Dosing mL/min Estimated GFR (MDRD) mL/min Glucose (70-140) mg/dL Lactic Acid (0.4-2.0) mmol/L Calcium (8.7-10.3) mg/dL Total Bilirubin (0.2-1.0) mg/dL AST (15-37) U/L ALT (14-63) U/L Alkaline Phosphatase (46-116) U/L Total Protein (6.4-8.2) g/dL Albumin (3.40-5.00) g/dL SARS CoV-2 RNA Rapid JASSI Negative (NEGATIVE) Med Orders - Current: Current Medications Acetaminophen (Acetaminophen 500 Mg Tab) 500 mg PO BID [facility] Last Admin: 10/18/20 08:35 Dose: 500 mg Documented by: Carbamazepine (Carbamazepine 200 Mg TabPt Own) 300 mg PO BID [facility] Last Admin: 10/18/20 08:35 Dose: 300 mg Documented by: Cholecalciferol (Cholecalciferol (Vitamin D3) 25 Mcg Tab) 50 mcg PO BEDTIME [facility] Last Admin: 10/17/20 22:44 Dose: 50 mcg Documented by: Furosemide (Furosemide 40 Mg Pt Own) 60 mg PO DAILY [facility] Last Admin: 10/18/20 08:36 Dose: 60 mg Documented by: Nitrofurantoin Macrocrystals (Nitrofurantoin Monohydrate/Macrocrystalline 100 Mg Cap) 100 mg PO BID [facility] Stop: 10/23/20 09:01 Simvastatin 40mg (Pt Own) 40 each PO DAILY [facility] Last Admin: 10/18/20 08:35 Dose: 40 each Documented by: Omeprazole (Omeprazole 20 Mg Cap.Cr Pt Own) 20 mg PO ACBREAKFAST [facility] Last Admin: 10/18/20 06:30 Dose: Not Given Documented by: Potassium Chloride (Potassium Chloride 10 Meq Tab.ErPt Own) 20 meq PO DAILY [facility] Last Admin: 10/18/20 08:35 Dose: 20 meq Documented by: Sertraline HCl (Sertraline 50 Mg TabPt Own) 100 mg PO DAILY [facility] Last Admin: 10/18/20 08:36 Dose: 100 mg Documented by: Sodium Chloride (Sodium Chloride 0.9% 10 Ml Syringe) 10 ml FLUSH Q8HR PRN PRN Reason: keep vein open Last Admin: 10/17/20 17:36 Dose: 10 ml Documented by: Discontinued Medications Carbamazepine (Carbamazepine 200 Mg Tab) 300 mg PO BID [facility] Last Admin: 10/17/20 23:15 Dose: Not Given Documented by: Ceftriaxone Sodium (Ceftriaxone 1 Gm Vial) 1 gm IVPUSH ONETIME ONE Stop: 10/17/20 17:14 Last Admin: 10/17/20 17:32 Dose: 1 gm Documented by: Sodium Chloride (Normal Saline) 500 mls @ 999 mls/hr IV .BOLUS VIKRAM Last Admin: 10/17/20 17:01 Dose: 999 mls/hr Documented by: Omeprazole (Omeprazole 20 Mg Cap.Cr) 20 mg PO ACBREAKFAST [facility] Potassium Chloride (Potassium Chloride 10 Meq Tab.Er) 20 meq PO DAILY [facility] Sertraline HCl (Sertraline 50 Mg TabPt Own) 100 mg PO DAILY [facility] Simvastatin (Simvastatin 20 Mg Tab) 40 mg PO DAILY [facility] Comments:: See H&P for details
[2020-10-18] MEDS ORDERED: Nitrofurantoin Monohydrate/Macrocrystalline 100 MG Cap PO SCH (21:00)
== END 2020-10-18 13:10 ==
LOC: KA.ED 16:04 → KA.MS 18:03 → UNDOADMOB 18:25
PROVIDERS: ADMIT Family Medicine; ATTEND Family Medicine
DX: N39.0 Urinary tract infection, site not specified (principal); R53.1 Weakness; R53.81 Other malaise; E78.00 Pure hypercholesterolemia, unspecified; K21.9 Gastro-esophageal reflux disease without esophagitis; G62.9 Polyneuropathy, unspecified; E66.9 Obesity, unspecified; F03.90 Unspecified dementia, unspecified severity, without behavioral disturbance, psychotic disturbance, mood disturbance, and anxiety; G50.0 Trigeminal neuralgia; M17.0 Bilateral primary osteoarthritis of knee; M81.0 Age-related osteoporosis without current pathological fracture; K44.9 Diaphragmatic hernia without obstruction or gangrene; E55.9 Vitamin D deficiency, unspecified; I87.2 Venous insufficiency (chronic) (peripheral); Z20.822 Contact with and (suspected) exposure to COVID-19; Z79.899 Other long term (current) drug therapy; Z98.890 Other specified postprocedural states; W19.XXXA Unspecified fall, initial encounter; Y92.009 Unspecified place in unspecified non-institutional (private) residence as the place of occurrence of the external cause; Z68.31 Body mass index [BMI] 31.0-31.9, adult
CPT/HCPCS: 36415; 70450; 71045; 80053; 80156; 83605; 85027; 96374; 97162; 99284; 99285; A9270; G0378; J0696; J7040; U0002

== ENCOUNTER 2020-11-02 10:08 | Inpatient (IN) | payer MEDICARE, BC ==
[2020-11-02] MEDS ORDERED: Sodium Chloride 0.9% 1,000 ML IV ONE (10:19)
[2020-11-02] MEDS ORDERED: Sodium Chloride 0.9% 10 ML Syringe FLUSH PRN (10:19)
--- NOTE | 2020-11-02 10:21 | EDM.PDOC ---
ED HPI GENERAL MEDICAL PROBLEM - General Chief Complaint: Respiratory Problem Stated Complaint: SOB Time Seen by Provider: 11/02/20 10:10 Source of Information: Reports: Patient, EMS History Limitations: Reports: No Limitations - History of Present Illness INITIAL COMMENTS - FREE TEXT/NARRATIVE: 75 YO WF PRESENTS TO ER BY EMS FROM [place] WITH HYPOXEMIA AND SHORTNESS OF BREATH WHICH BEGAN THIS AM. [facility] REPORTS PATIENT WAS SHORT OF BREATH THIS AM, AND SAO2- 88% ON RA PROMPTING EMS CALL. PT HAS BEEN DETERIORATING AT HOME AND JUST RECENTLY WAS ADMITTED TO [facility] DUE TO PROGRESSIVE DEMENTIA. PT WITH HISTORY OF CHRONIC UTI'S. PT IS DNR PER [facility]. PT CONFUSED AND MILDLY OBTUNDED. BP-ON ARRIVAL WAS 90/60'S AND AFTER NS 500CC BOLUS BY IMPROVED TO 109/75. PT [id number]; SAO2 92% ON 6L. Onset: Sudden Duration: Getting Worse Location: Reports: Generalized Severity: Severe Improves with: Reports: None Worsens with: Reports: None Associated Symptoms: Reports: Confusion, Shortness of Breath - Related Data Allergies Allergy/AdvReac Type Severity Reaction Status Date / Time No Known Drug Allergies Allergy Cannot Verified 10/17/20 16:30 Remember Home Meds: Home Meds Furosemide [Lasix] 60 mg PO DAILY 02/29/20 [History] Omeprazole 20 mg PO ACBREAKFAST 02/29/20 [History] Potassium Chloride 20 meq PO DAILY 02/29/20 [History] Simvastatin 40 mg PO DAILY 02/29/20 [History] carBAMazepine [Carbamazepine] 300 mg PO BID 02/29/20 [History] Acetaminophen [Tylenol Extra Strength] 500 mg PO BID 10/17/20 [History] Cholecalciferol (Vitamin D3) [Vitamin D3] 2,000 unit PO BEDTIME 10/17/20 [History] Nitrofurantoin Boyle/Macrocryst [Nitrofurantoin Boyle-MCR] 100 mg PO BID cap 10/18/20 [Rx] Sertraline [Zoloft] 100 mg PO DAILY tablet 10/18/20 [Rx] Past Medical History - Past Health History Medical/Surgical History: Denies Medical/Surgical History HEENT History: Reports: Cataract, Impaired Vision, Sinusitis Cardiovascular History: Reports: Blood Clots/VTE/DVT, High Cholesterol Respiratory History: Reports: PE Gastrointestinal History: Reports: Chronic Constipation, Chronic Diarrhea, GERD, Hiatal Hernia Genitourinary History: Reports: Urinary Incontinence NEGATIVE ASSEMBLER History: Reports: Musculoskeletal History: Reports: Osteoarthritis Neurological History: Reports: Neuropathy, Peripheral Psychiatric History: Reports: Dementia, Depression Endocrine/Metabolic History: Reports: Obesity/BMI 30+ Dermatologic History: Reports: None - Infectious Disease History Infectious Disease History: Reports: Chicken Pox, Shingles - Past Surgical History Head Surgeries/Procedures: Reports: None HEENT Surgical History: Reports: Cataract Surgery Cardiovascular Surgical History: Reports: None Respiratory Surgical History: Reports: None Female Surgical History: Reports: Tubal Ligation Neurological Surgical History: Reports: None Musculoskeletal Surgical History: Reports: None Social & Family History - Family History Family Medical History: Unobtainable - Caffeine Use Caffeine Use: Reports: Energy Drinks, Soda ED ROS GENERAL - Review of Systems Review Of Systems: Comprehensive ROS is negative, except as noted in HPI. Constitutional: Denies: Fever, Chills Respiratory: Reports: Shortness of Breath Cardiovascular: Reports: Blood Pressure Problem GI/Abdominal: Denies: Vomiting Neurological: Reports: Confusion Psychiatric: Reports: Confusion ED EXAM, GENERAL - Physical Exam Exam: See Below Exam Limited By: Altered Mental Status General Appearance: Obtunded, Mild Distress Eye Exam: Bilateral Eye: PERRL Throat/Mouth: Normal Inspection, Normal Lips, Normal Teeth, Normal Gums, Normal Oropharynx, Normal Voice, No Airway Compromise Head: Atraumatic, Normocephalic Neck: Normal Inspection, Supple, Non-Tender, Full Range of Motion Respiratory/Chest: Chest Non-Tender, Respiratory Distress, Rales Cardiovascular: Normal Peripheral Pulses, Regular Rate, Rhythm, No Gallop, No JVD, No Murmur, No Rub, Tachycardia GI/Abdominal: Normal Bowel Sounds, Soft, Non-Tender, No Organomegaly, No Distention, No Abnormal Bruit, No Mass Neurological: Slow to Respond Psychiatric: Flat Affect Skin Exam: Warm, Dry, Intact, Normal Color, No Rash Lymphatic: No Adenopathy #1 Interpretation EKG Date: 11/02/20 Time: 10:29 Rhythm: NSR Rate (Beats/Min): 121 P-Wave: Variable QRS: Normal ST-T: Normal QT: Normal Comparison: NA - No Prior EKG Course - Vital Signs Last Recorded V/S: Last Vital Signs Temp 97.6 F 11/02/20 10:37 Pulse 178 H 08/18/21 11:15 Resp 40 H 11/02/20 11:15 BP 141/107 H 11/02/20 11:15 Pulse Ox 90 L 11/02/20 11:15 - Orders/Labs/Meds Orders: Active Orders 24 hr Category Date Time Status Patient Status Manage Transfer [TRANSFER] Routine ADT 11/02/20 11:47 Active Patient Status [ADT] Routine ADT 11/02/20 11:49 Active BIPAP Adult [RT BiPAP/CPAP] [RC] ASDIRECTED Care 11/02/20 11:04 Active Blood Pressure Mgt: Sepsis [RC] Q15MX2 Care 11/02/20 10:19 Active Cardiac Monitoring [RC] CONTINUOUS Care 11/02/20 10:20 Active Oxygen Therapy [RC] PRN Care 11/02/20 11:49 Active VTE/DVT Education [RC] PER UNIT ROUTINE Care 11/02/20 11:49 Active Vital Signs [RC] Q4H Care 11/02/20 11:49 Active B-TYPE NATRIURETIC PEPTIDE,BNP [CHEM] Stat Lab 11/02/20 11:30 Ordered CULTURE BLOOD [BC] Stat Lab 11/02/20 10:53 Received CULTURE BLOOD [BC] Stat Lab 11/02/20 10:53 Received REFLEX LACTIC ACID YES OR NO [CHEM] Routine Lab 11/02/20 10:53 Received Levofloxacin/Dextrose 5%-Water [Levaquin in D5W 250 MG/ Med 11/02/20 11:29 Active 50 ML] 250 mg Premix Bag 1 bag IV ONETIME Levofloxacin/Dextrose 5%-Water [Levaquin in D5W 500 MG/ Med 11/02/20 11:29 Active 100 ML] 500 mg Premix Bag 1 bag IV ONETIME Sodium Chloride 0.9% [Saline Flush] Med 11/02/20 10:19 Active 10 ml FLUSH Q8HR PRN Blood Culture x2 Reflex Set [OM.PC] Stat Oth 11/02/20 10:19 Ordered Saline Lock Insert [OM.PC] Stat Oth 11/02/20 10:19 Ordered Severe Sepsis Onset Time [OM.PC] Stat Oth 11/02/20 10:19 Ordered Resuscitation Status Routine Resus Stat 11/02/20 11:49 Ordered EKG 12 Lead [EK] Stat Ther 08/18/21 10:19 Ordered Medication Orders Levofloxacin/Dextrose 250 mg/ (Premix) 50 mls @ 50 mls/hr IV ONETIME ONE Stop: 11/02/20 12:28 Levofloxacin/Dextrose 500 mg/ (Premix) 100 mls @ 100 mls/hr IV ONETIME ONE Stop: 11/02/20 12:28 Sodium Chloride (Sodium Chloride 0.9% 10 Ml Syringe) 10 ml FLUSH Q8HR PRN PRN Reason: keep vein open Labs: Laboratory Tests 11/02/20 11/02/20 11/02/20 Range/Units 10:08 10:53 10:53 WBC 16.49 H (5.00-10.00) 10^3/uL RBC 4.63 (3.80-5.50) 10^6/uL Hgb 13.7 (12.0-16.0) g/dL Hct 42.9 (37.0-47.0) % MCV 92.7 H (82.0-92.0) fL MCH 29.6 (27.0-31.0) pg MCHC 31.9 L (32.0-36.0) g/dL RDW 14.6 H (11.5-14.5) % Plt Count 176 (150-400) 10^3/uL MPV 11.2 H (7.4-10.4) fL Immature Gran % (Auto) 0.1 (0.0-5.0) % Neut % (Auto) 88.4 H (50.0-70.0) % Lymph % (Auto) 4.2 L (20.0-40.0) % Boyle % (Auto) 7.1 (2.0-8.0) % Eos % (Auto) 0.1 L (1.0-3.0) % Baso % (Auto) 0.1 (0.0-1.0) % Neut # (Auto) 14.58 H (2.50-7.00) 10^3/uL Lymph # (Auto) 0.69 L (1.00-4.00) 10^3/uL Boyle # (Auto) 1.17 H (0.10-0.80) 10^3/uL Eos # (Auto) 0.01 L (0.10-0.30) 10^3/uL Baso # (Auto) 0.02 (0.00-0.10) 10^3/uL Immature Gran # (Auto) 0.02 (0.00-0.50) 10^3/uL Sodium 140 (136-145) mmol/L Potassium 3.9 (3.5-5.1) mmol/L Chloride 108 H (98-107) mmol/L Carbon Dioxide 21.2 (21.0-32.0) mmol/L Anion Gap 14.7 (5-15) mmol/L BUN 22 H (7-18) mg/dL Creatinine 0.45 L (0.51-1.17) mg/dL Est Cr Clr Drug Dosing 90.73 mL/min Estimated GFR (MDRD) > 60 mL/min Glucose 131 (70-140) mg/dL Lactic Acid (0.4-2.0) mmol/L Calcium 8.1 L (8.7-10.3) mg/dL Total Bilirubin 0.5 (0.2-1.0) mg/dL AST 23 (15-37) U/L ALT 21 (14-63) U/L Alkaline Phosphatase 101 (46-116) U/L Troponin I High Sens 9.000 (0-51.000) pg/mL Total Protein 6.3 L (6.4-8.2) g/dL Albumin 2.67 L (3.40-5.00) g/dL Specimen Type Urine Color (YELLOW) Urine Appearance (CLEAR) Urine pH (5.0-9.0) Ur Specific Bowdon (1.005-1.030) Urine Protein (NEGATIVE) mg/dL Urine Glucose (UA) (NEGATIVE) mg/dL Urine Ketones (NEGATIVE) mg/dL Urine Occult Blood (NEGATIVE) Urine Nitrite (NEGATIVE) Urine Bilirubin (NEGATIVE) Urine Urobilinogen (0.2-1.0) E.U./dL Ur Leukocyte Esterase (NEGATIVE) Urine RBC (0-5) /HPF Urine WBC (0-5) /HPF Ur Epithelial Cells /LPF Urine Bacteria (NONE TO FEW) /HPF Urine Mucus (NEGATIVE) /LPF SARS CoV-2 RNA Rapid JASSI Negative (NEGATIVE) 11/02/20 11/02/20 Range/Units 10:53 11:05 WBC (5.00-10.00) 10^3/uL RBC (3.80-5.50) 10^6/uL Hgb (12.0-16.0) g/dL Hct (37.0-47.0) % MCV (82.0-92.0) fL MCH (27.0-31.0) pg MCHC (32.0-36.0) g/dL RDW (11.5-14.5) % Plt Count (150-400) 10^3/uL MPV (7.4-10.4) fL Immature Gran % (Auto) (0.0-5.0) % Neut % (Auto) (50.0-70.0) % Lymph % (Auto) (20.0-40.0) % Boyle % (Auto) (2.0-8.0) % Eos % (Auto) (1.0-3.0) % Baso % (Auto) (0.0-1.0) % Neut # (Auto) (2.50-7.00) 10^3/uL Lymph # (Auto) (1.00-4.00) 10^3/uL Boyle # (Auto) (0.10-0.80) 10^3/uL Eos # (Auto) (0.10-0.30) 10^3/uL Baso # (Auto) (0.00-0.10) 10^3/uL Immature Gran # (Auto) (0.00-0.50) 10^3/uL Sodium (136-145) mmol/L Potassium (3.5-5.1) mmol/L Chloride (98-107) mmol/L Carbon Dioxide (21.0-32.0) mmol/L Anion Gap (5-15) mmol/L BUN (7-18) mg/dL Creatinine (0.51-1.17) mg/dL Est Cr Clr Drug Dosing mL/min Estimated GFR (MDRD) mL/min Glucose (70-140) mg/dL Lactic Acid 2.6 H (0.4-2.0) mmol/L Calcium (8.7-10.3) mg/dL Total Bilirubin (0.2-1.0) mg/dL AST (15-37) U/L ALT (14-63) U/L Alkaline Phosphatase (46-116) U/L Troponin I High Sens (0-51.000) pg/mL Total Protein (6.4-8.2) g/dL Albumin (3.40-5.00) g/dL Specimen Type Urinvoid Urine Color Yellow (YELLOW) Urine Appearance Slightly cloudy H (CLEAR) Urine pH 5.5 (5.0-9.0) Ur Specific Bowdon >= 1.030 (1.005-1.030) Urine Protein 100 H (NEGATIVE) mg/dL Urine Glucose (UA) Negative (NEGATIVE) mg/dL Urine Ketones Trace H (NEGATIVE) mg/dL Urine Occult Blood Large H (NEGATIVE) Urine Nitrite Positive H (NEGATIVE) Urine Bilirubin Small H (NEGATIVE) Urine Urobilinogen 0.2 (0.2-1.0) E.U./dL Ur Leukocyte Esterase Small H (NEGATIVE) Urine RBC 30-40 H (0-5) /HPF Urine WBC 40-50 H (0-5) /HPF Ur Epithelial Cells Few /LPF Urine Bacteria Many H (NONE TO FEW) /HPF Urine Mucus Few H (NEGATIVE) /LPF SARS CoV-2 RNA Rapid JASSI (NEGATIVE) Meds: Medications Generic Name Dose Route Start Last Admin Trade Name Freq PRN Reason Stop Dose Admin Levofloxacin/Dextrose 250 mg/ 50 mls @ 50 mls/hr 11/02/20 11:29 Premix IV 11/02/20 12:28 ONETIME ONE Levofloxacin/Dextrose 500 mg/ 100 mls @ 100 mls/hr 11/02/20 11:29 Premix IV 11/02/20 12:28 ONETIME ONE Sodium Chloride 10 ml 11/02/20 10:19 Sodium Chloride 0.9% 10 Ml Syringe FLUSH Q8HR PRN keep vein open Discontinued Medications Generic Name Dose Route Start Last Admin Trade Name Freq PRN Reason Stop Dose Admin Sodium Chloride 1,000 mls @ 1,000 mls/hr 11/02/20 10:19 Normal Saline IV 11/02/20 11:18 BOLUS ONE Protocol Departure - Departure Time of Disposition: 11:45 Disposition: Admitted As Inpatient 67 Preliminary Cause of *Q: Other_Special Instruction Condition: Critical Clinical Impression: Hypoxemia Sepsis Qualifiers: Sepsis type: sepsis due to unspecified organism Acute respiratory failure type: with hypoxia CHF (congestive heart failure) Qualifiers: Heart failure chronicity: acute - Discharge Information Referrals: Dena Mcguire NP [Primary Care Provider] - Forms: ED Department Discharge Sepsis Event Note (ED) - Focused Exam Vital Signs: Vital Signs Temp Pulse Resp BP Pulse Ox 11/02/20 11:15 178 H 40 H 141/107 H 90 L 11/02/20 10:47 141 H 36 H 99/76 92 L 11/02/20 10:38 126 H 32 H 116/57 L 93 L 11/02/20 10:37 97.6 F 127 H 32 H 109/75 92 L 11/02/20 10:31 97.6 F 129 H 31 H 109/75 92 L 11/02/20 10:19 92/77 11/02/20 10:08 97.4 F 158 H 36 H 92/77 90 L - My Orders Last 24 Hours: My Active Orders 11/02/20 10:19 Blood Pressure Mgt: Sepsis [RC] Q15MX2 Sodium Chloride 0.9% [Saline Flush] 10 ml FLUSH Q8HR PRN Blood Culture x2 Reflex Set [OM.PC] Stat Saline Lock Insert [OM.PC] Stat Severe Sepsis Onset Time [OM.PC] Stat EKG 12 Lead [EK] Stat 11/02/20 10:20 Cardiac Monitoring [RC] CONTINUOUS 11/02/20 10:53 CULTURE BLOOD [BC] Stat CULTURE BLOOD [BC] Stat REFLEX LACTIC ACID YES OR NO [CHEM] Routine 11/02/20 11:04 BIPAP Adult [RT BiPAP/CPAP] [RC] ASDIRECTED 11/02/20 11:29 Levofloxacin/Dextrose 5%-Water [Levaquin in D5W 250 MG/50 ML] 250 mg Premix Bag 1 bag IV ONETIME Levofloxacin/Dextrose 5%-Water [Levaquin in D5W 500 MG/100 ML] 500 mg Premix Bag 1 bag IV ONETIME 11/02/20 11:30 B-TYPE NATRIURETIC PEPTIDE,BNP [CHEM] Stat 11/02/20 11:47 Patient Status Manage Transfer [TRANSFER] Routine 11/02/20 11:49 Patient Status [ADT] Routine Oxygen Therapy [RC] PRN VTE/DVT Education [RC] PER UNIT ROUTINE Vital Signs [RC] Q4H Resuscitation Status Routine - Assessment/Plan Last 24 Hours: My Active Orders 11/02/20 10:19 Blood Pressure Mgt: Sepsis [RC] Q15MX2 Sodium Chloride 0.9% [Saline Flush] 10 ml FLUSH Q8HR PRN Blood Culture x2 Reflex Set [OM.PC] Stat Saline Lock Insert [OM.PC] Stat Severe Sepsis Onset Time [OM.PC] Stat EKG 12 Lead [EK] Stat 11/02/20 10:20 Cardiac Monitoring [RC] CONTINUOUS 11/02/20 10:53 CULTURE BLOOD [BC] Stat CULTURE BLOOD [BC] Stat REFLEX LACTIC ACID YES OR NO [CHEM] Routine 11/02/20 11:04 BIPAP Adult [RT BiPAP/CPAP] [RC] ASDIRECTED 11/02/20 11:29 Levofloxacin/Dextrose 5%-Water [Levaquin in D5W 250 MG/50 ML] 250 mg Premix Bag 1 bag IV ONETIME Levofloxacin/Dextrose 5%-Water [Levaquin in D5W 500 MG/100 ML] 500 mg Premix Bag 1 bag IV ONETIME 11/02/20 11:30 B-TYPE NATRIURETIC PEPTIDE,BNP [CHEM] Stat 11/02/20 11:47 Patient Status Manage Transfer [TRANSFER] Routine 11/02/20 11:49 Patient Status [ADT] Routine Oxygen Therapy [RC] PRN VTE/DVT Education [RC] PER UNIT ROUTINE Vital Signs [RC] Q4H Resuscitation Status Routine Assessment:: 1. UROSEPSIS-GIVEN LEVAQUIN 750MG IV 2. HYPOXEMIA- CONTINUE O2 @6L 3. MILD TO MODERATE CHF- HOLD FLUIDS Plan: 1. ADMIT TO MEDICINE- DISCUSSED WITH ERIKA ALMANZA-PT IS DNR-WILL ADMIT FOR ANTIBIOTICS AND COMFORT CARE 2. LEVAQUIN 750MG IV NOW 3. REPEAT LACTIC ACID IN 1 HOUR 4. SUPPORTIVE CARE 5. ADDITIONAL ORDERS PER MEDICINE
--- NOTE | 2020-11-02 11:03 | CR ---
[id number] RAD/RAD Chest PA or AP 1V EXAM: FRONTAL CHEST INDICATION: SHORTNESS OF BREATH. COMPARISON: October 17, 2020. DISCUSSION: Increased cardiomegaly. Development of mild to moderate central vascular congestion and mild interstitial edema. A right base opacity has nonspecific features, but likely represents a combination of volume loss and pleural fluid. Chronic mild elevation of the right hemidiaphragm. Large hiatus hernia. IMPRESSION: 1. Cardiomegaly with development of mild to moderate central vascular congestion. 2. Nonspecific right base opacity, favor small effusion with atelectasis. Anthony Dubois MD 11/02/20 [id number] Thank you for allowing us to participate in the care of your patient.
[2020-11-02 11:22] LABS: ANION GAP 14.7 mmol/L (5-15); CHLORIDE,CL 108 mmol/L (98-107); SODIUM,NA 140 mmol/L (136-145)
[2020-11-02] MEDS ORDERED: Levofloxacin/Dextrose 5%-Water 250 MG in Premix Bag 1 BAG IV ONE (11:29)
[2020-11-02] MEDS ORDERED: Levofloxacin/Dextrose 5%-Water 500 MG in Premix Bag 1 BAG IV ONE (11:29)
[2020-11-02] MEDS: Albuterol/Ipratropium 3.0-0.5 MG/3 ML Neb Soln NEB PRN ×3 (12:45→16:40)
[2020-11-02] MEDS ORDERED: Albuterol/Ipratropium 3.0-0.5 MG/3 ML Neb Soln ONE (12:49)
[2020-11-02] MEDS ORDERED: Dextrose 5%-0.9% NaCl 1,000 ML ONE (12:50)
[2020-11-02] MEDS: Dextrose 5%-0.9% NaCl 1,000 ML IV SCH ×2 (13:15→21:40)
[2020-11-02] MEDS: cefTRIAXone 1 GM Vial IVPUSH SCH (13:53)
--- NOTE | 2020-11-02 15:31 | HP ---
PATIENT PROFILE: The patient is a 75-year-old patient who was brought by EMS from the residential. HISTORY OF PRESENT ILLNESS: This 75-year-old female patient was brought to the emergency room by EMS from the residential with history of hypoxemia and shortness of breath which began this morning. The residential reported that the patient was short of breath this a.m. SaO2 is 88% on room air. The patient has been deteriorating at home and was just recently admitted to the residential with progressive dementia. The patient has a history of chronic UTI. The patient is DNR per residential orders. The patient is slightly confused and moderately obtunded. Blood pressure on arrival to the emergency room was 90/60 and after 500 mL bolus, improved to 109/75. The patient is tachycardic with a rate of 128, SaO2 is 92% on 6 L of oxygen. PAST MEDICAL HISTORY: Includes HEENT: Cataract with impaired vision and past history of sinusitis. Cardiovascular History: Reports blood clots, VTE, DVT, high cholesterol. Respiratory: Has had a history of PE in the past. GI History: Reports chronic constipation, diarrhea, GERD, and hiatal hernia. Genitourinary History: Reports urinary incontinence. HARBOUR MASTER History: Negative for previous pregnancies. Musculoskeletal History: Reports osteoarthritis. Neurological: Has history of neuropathy which is peripheral. Psychiatric History: History of dementia, depression. Endocrine: Obesity. Dermatological History: Negative. Infectious History: Has childhood illnesses of chickenpox and shingles. Family history: Reviewed with the patient. Patient's 2 years ago. PAST SURGICAL HISTORY: Includes cataract surgery. GI/ System: The patient had tubal ligation. MEDICATIONS: Home medications include Lasix 60 mg daily; omeprazole 20 mg after breakfast; potassium chloride 20 mEq daily; simvastatin 40 daily; Tegretol 300 b.i.d.; Tylenol 500 b.i.d.; calciferol D3 of 2000 units at bedtime; nitrofurantoin 100 mg b.i.d., started 10/18. Sertraline 100 mg daily. REVIEW OF SYSTEMS: HEAD AND NECK: No complaints. EYES: No complaints. EARS, NOSE, AND THROAT: No complaints. RESPIRATORY SYSTEM: Complains of shortness of breath. No chest pain. CONSTITUTIONAL: Denies fever and chills. CARDIOVASCULAR SYSTEM: History of elevated blood pressure. ABDOMEN: Denies nausea, vomiting. NEUROLOGICAL: Confusion. PSYCHIATRIC: Moderate confusion. PHYSICAL EXAMINATION: GENERAL: Reveals an elderly patient. She was seen in the room. She is in moderately acute distress. Distress is mainly respiratory. She is slightly pale. EYES: PERRLA. THROAT: Normal except for dryness of the mucous membranes. HEAD: Normocephalic. NECK: Supple. Full range of motion. No midline swellings. Thyroid gland is not enlarged. Carotid pulses are full and equal. RESPIRATORY SYSTEM: The patient has audible inspiratory and expiratory wheezing present. No rales. CARDIOVASCULAR: Rhythm is regular. No gallop. No JVD. No murmurs. Tachycardia is present. GI System: Normal bowel sounds. No masses. No hepatosplenomegaly. No abnormal masses. NEUROLOGICAL: Slow to respond, slightly confused. PSYCHIATRIC: Flat affect. SKIN: Warm, dry. Normal color, maybe slightly pale. No rash. LYMPHATIC SYSTEM: No adenopathy. DIAGNOSTIC: EKG shows normal sinus rhythm, rate is 121. T-wave is variable. QRS normal. ST-segment normal. OBJECTIVE: VITAL SIGNS: The patient's temperature 97.6, pulse is 178, respirations 40, blood pressure 140/107, and pulse oximeter 90%. The patient was given additional oxygen, was treated with IV fluids and was admitted to the hospital emergency room. Levofloxacin has been ordered 750 mg IV. Also labs also sodium chloride D5 normal saline at 100 mL an hour. The lab report is as follows: Her hemoglobin is 13.7, white count is 16.49. Predominantly with neutrophils at 88%, lymphocytes of 44.2, monocytes of 7.1. Neutrophil count was 14.58. Sodium 140, potassium 3.9, chloride slightly high at 108, normal 107. Anion gap is normal. BUN is 22, normal 18, creatinine 0.45. Creatinine clearance is greater than 60. Lactic acid is high at 2.6, normal 2. Troponins 9. Normal up to 51. Total protein low at 6.8, normal at 6.4. Albumin 2.6, normal 3.4. Urinalysis reveals 30 to 40 rbc's. 40 to 50 wbc's; many bacteria, mucus. Specific gravity is 1.030. Nitrites positive. Blood cultures have been ordered. B-type natriuretic peptide is normal. FINAL DIAGNOSES: 1. Acute respiratory distress. The patient's chest x-ray shows an infiltrate on the right base, question pneumonia, question atelectasis. 2. Elevated lactic acid. Suspect sepsis. 3. Possible UTI. PLAN: 1. We will continue with IV fluids at 100 mL an hour, D5 normal saline. 2. Maximize treatments with DuoNeb q.1 hour as necessary to relieve her bronchospasm. IV levofloxacin will be given to her. We will continue with her oral medications including nitrofurantoin. We will withhold the Lasix, continue omeprazole 20 mg, withhold potassium chloride, hold simvastatin. Tegretol 300 mg b.i.d. will be continued. 3. Tylenol may be continued at 500 mg b.i.d.; Zoloft 100 mg daily continued. The patient is a DNR. We will keep her comfortable as much as possible. /[id number]/MODL MTDD
[2020-11-02] MEDS ORDERED: methylPREDNISolone Sodium Succinate 125 MG/2 ML SDV IVPUSH ONE (18:14)
[2020-11-02] MEDS: Morphine 2 MG/ML SYRINGE IVPUSH PRN (21:35)
[2020-11-03] MEDS: Albuterol/Ipratropium 3.0-0.5 MG/3 ML Neb Soln NEB PRN ×3 (02:16→09:18)
[2020-11-03] MEDS: Morphine 2 MG/ML SYRINGE IVPUSH PRN ×5 (02:34→22:44)
[2020-11-03] MEDS ORDERED: Hydrocortisone Sodium Succinate 100 MG/2 ML SDV IVPUSH ONE (03:08)
[2020-11-03] MEDS ORDERED: Magnesium Sulfate/Water 2 GM in Premix Bag 1 BAG IV ONE ×2 (03:10→10:57)
[2020-11-03] MEDS: Dextrose 5%-0.9% NaCl 1,000 ML IV SCH (08:03)
--- NOTE | 2020-11-03 08:21 | CR ---
[id number] RAD/RAD Chest PA or AP 1V EXAM: FRONTAL CHEST INDICATION: DYSPNEA. COMPARISON: November 02, 2020. DISCUSSION: Cardiomegaly with mild to moderate central vascular congestion. A large has not appreciably changed. Patchy bilateral airspace edema and/or infiltrates. IMPRESSION: 1. There is cardiomegaly with mild to moderate central vascular congestion. 2. Patchy bilateral airspace opacities could relate to asymmetric edema or infiltrates. Anthony Dubois MD 11/03/20 0820 Thank you for allowing us to participate in the care of your patient.
[2020-11-03 09:00] LABS: ANION GAP 16.8 mmol/L (5-15); CHLORIDE,CL 108 mmol/L (98-107); SODIUM,NA 143 mmol/L (136-145)
[2020-11-03] MEDS ORDERED: LORazepam 2 MG/ML SDV ONE (10:10)
[2020-11-03] MEDS: LORazepam 2 MG/ML SDV IVPUSH PRN (10:15)
[2020-11-03] MEDS ORDERED: Morphine 2 MG/ML SYRINGE IVPUSH PRN (10:49)
[2020-11-03] MEDS ORDERED: Furosemide 40 MG/4 ML VIAL IVPUSH ONE (10:52)
--- NOTE | 2020-11-03 10:54 | PCM.PN ---
- General Info Date of Service: 11/03/20 Subjective Update: Patient will only open eyes when spoken to, thrashing around in bed, fell out of bed this morning over the rails, not cooperative acute agitation - Review of Systems General: Denies: Fever Pulmonary: Reports: Shortness of Breath - Patient Data Vitals - Most Recent: Last Vital Signs Temp 97.1 F 11/03/20 08:30 Pulse 134 H 11/03/20 08:30 Resp 25 H 11/03/20 08:30 BP 108/88 11/03/20 08:30 Pulse Ox 92 L 11/03/20 08:30 Weight - Most Recent: 162 lb 3 oz I&O - Last 24 Hours: Intake & Output 11/02/20 11/03/20 11/03/20 22:59 06:59 14:59 Intake Total 944 1914 Output Total 300 200 Balance 644 1714 Lab Results Last 24 Hours: Laboratory Results - last 24 hr 11/02/20 11/02/20 11/02/20 Range/Units 10:08 10:53 10:53 WBC 16.49 H (5.00-10.00) 10^3/uL RBC 4.63 (3.80-5.50) 10^6/uL Hgb 13.7 (12.0-16.0) g/dL Hct 42.9 (37.0-47.0) % MCV 92.7 H (82.0-92.0) fL MCH 29.6 (27.0-31.0) pg MCHC 31.9 L (32.0-36.0) g/dL RDW 14.6 H (11.5-14.5) % Plt Count 176 (150-400) 10^3/uL MPV 11.2 H (7.4-10.4) fL Immature Gran % (Auto) 0.1 (0.0-5.0) % Neut % (Auto) 88.4 H (50.0-70.0) % Lymph % (Auto) 4.2 L (20.0-40.0) % Ray % (Auto) 7.1 (2.0-8.0) % Eos % (Auto) 0.1 L (1.0-3.0) % Baso % (Auto) 0.1 (0.0-1.0) % Neut # (Auto) 14.58 H (2.50-7.00) 10^3/uL Lymph # (Auto) 0.69 L (1.00-4.00) 10^3/uL Ray # (Auto) 1.17 H (0.10-0.80) 10^3/uL Eos # (Auto) 0.01 L (0.10-0.30) 10^3/uL Baso # (Auto) 0.02 (0.00-0.10) 10^3/uL Immature Gran # (Auto) 0.02 (0.00-0.50) 10^3/uL Add Manual Diff Neutrophils % (Manual) (50-70) % Lymphocytes % (Manual) (20-40) % Monocytes % (Manual) (2-8) % Absolute Neutrophils Lymphocytes # (Manual) Monocytes # (Manual) Sodium 140 (136-145) mmol/L Potassium 3.9 (3.5-5.1) mmol/L Chloride 108 H (98-107) mmol/L Carbon Dioxide 21.2 (21.0-32.0) mmol/L Anion Gap 14.7 (5-15) mmol/L BUN 22 H (7-18) mg/dL Creatinine 0.45 L (0.51-1.17) mg/dL Est Cr Clr Drug Dosing 90.73 mL/min Estimated GFR (MDRD) > 60 mL/min Glucose 131 (70-140) mg/dL Lactic Acid (0.4-2.0) mmol/L Calcium 8.1 L (8.7-10.3) mg/dL Total Bilirubin 0.5 (0.2-1.0) mg/dL AST 23 (15-37) U/L ALT 21 (14-63) U/L Alkaline Phosphatase 101 (46-116) U/L Troponin I High Sens 9.000 (0-51.000) pg/mL B-Natriuretic Peptide (0-100) pg/mL Total Protein 6.3 L (6.4-8.2) g/dL Albumin 2.67 L (3.40-5.00) g/dL Specimen Type Urine Color (YELLOW) Urine Appearance (CLEAR) Urine pH (5.0-9.0) Ur Specific [place] (1.005-1.030) Urine Protein (NEGATIVE) mg/dL Urine Glucose (UA) (NEGATIVE) mg/dL Urine Ketones (NEGATIVE) mg/dL Urine Occult Blood (NEGATIVE) Urine Nitrite (NEGATIVE) Urine Bilirubin (NEGATIVE) Urine Urobilinogen (0.2-1.0) E.U./dL Ur Leukocyte Esterase (NEGATIVE) Urine RBC (0-5) /HPF Urine WBC (0-5) /HPF Ur Epithelial Cells /LPF Urine Bacteria (NONE TO FEW) /HPF Urine Mucus (NEGATIVE) /LPF SARS CoV-2 RNA Rapid JASSI Negative (NEGATIVE) 11/02/20 11/02/20 11/02/20 Range/Units 10:53 10:53 11:05 WBC (5.00-10.00) 10^3/uL RBC (3.80-5.50) 10^6/uL Hgb (12.0-16.0) g/dL Hct (37.0-47.0) % MCV (82.0-92.0) fL MCH (27.0-31.0) pg MCHC (32.0-36.0) g/dL RDW (11.5-14.5) % Plt Count (150-400) 10^3/uL MPV (7.4-10.4) fL Immature Gran % (Auto) (0.0-5.0) % Neut % (Auto) (50.0-70.0) % Lymph % (Auto) (20.0-40.0) % Ray % (Auto) (2.0-8.0) % Eos % (Auto) (1.0-3.0) % Baso % (Auto) (0.0-1.0) % Neut # (Auto) (2.50-7.00) 10^3/uL Lymph # (Auto) (1.00-4.00) 10^3/uL Ray # (Auto) (0.10-0.80) 10^3/uL Eos # (Auto) (0.10-0.30) 10^3/uL Baso # (Auto) (0.00-0.10) 10^3/uL Immature Gran # (Auto) (0.00-0.50) 10^3/uL Add Manual Diff Neutrophils % (Manual) (50-70) % Lymphocytes % (Manual) (20-40) % Monocytes % (Manual) (2-8) % Absolute Neutrophils Lymphocytes # (Manual) Monocytes # (Manual) Sodium (136-145) mmol/L Potassium (3.5-5.1) mmol/L Chloride (98-107) mmol/L Carbon Dioxide (21.0-32.0) mmol/L Anion Gap (5-15) mmol/L BUN (7-18) mg/dL Creatinine (0.51-1.17) mg/dL Est Cr Clr Drug Dosing mL/min Estimated GFR (MDRD) mL/min Glucose (70-140) mg/dL Lactic Acid 2.6 H (0.4-2.0) mmol/L Calcium (8.7-10.3) mg/dL Total Bilirubin (0.2-1.0) mg/dL AST (15-37) U/L ALT (14-63) U/L Alkaline Phosphatase (46-116) U/L Troponin I High Sens (0-51.000) pg/mL B-Natriuretic Peptide 103 H (0-100) pg/mL Total Protein (6.4-8.2) g/dL Albumin (3.40-5.00) g/dL Specimen Type Urinvoid Urine Color Yellow (YELLOW) Urine Appearance Slightly cloudy H (CLEAR) Urine pH 5.5 (5.0-9.0) Ur Specific [place] >= 1.030 (1.005-1.030) Urine Protein 100 H (NEGATIVE) mg/dL Urine Glucose (UA) Negative (NEGATIVE) mg/dL Urine Ketones Trace H (NEGATIVE) mg/dL Urine Occult Blood Large H (NEGATIVE) Urine Nitrite Positive H (NEGATIVE) Urine Bilirubin Small H (NEGATIVE) Urine Urobilinogen 0.2 (0.2-1.0) E.U./dL Ur Leukocyte Esterase Small H (NEGATIVE) Urine RBC 30-40 H (0-5) /HPF Urine WBC 40-50 H (0-5) /HPF Ur Epithelial Cells Few /LPF Urine Bacteria Many H (NONE TO FEW) /HPF Urine Mucus Few H (NEGATIVE) /LPF SARS CoV-2 RNA Rapid JASSI (NEGATIVE) 11/02/20 11/02/20 11/03/20 Range/Units 13:45 17:45 07:35 WBC (5.00-10.00) 10^3/uL RBC (3.80-5.50) 10^6/uL Hgb (12.0-16.0) g/dL Hct (37.0-47.0) % MCV (82.0-92.0) fL MCH (27.0-31.0) pg MCHC (32.0-36.0) g/dL RDW (11.5-14.5) % Plt Count (150-400) 10^3/uL MPV (7.4-10.4) fL Immature Gran % (Auto) (0.0-5.0) % Neut % (Auto) (50.0-70.0) % Lymph % (Auto) (20.0-40.0) % Ray % (Auto) (2.0-8.0) % Eos % (Auto) (1.0-3.0) % Baso % (Auto) (0.0-1.0) % Neut # (Auto) (2.50-7.00) 10^3/uL Lymph # (Auto) (1.00-4.00) 10^3/uL Ray # (Auto) (0.10-0.80) 10^3/uL Eos # (Auto) (0.10-0.30) 10^3/uL Baso # (Auto) (0.00-0.10) 10^3/uL Immature Gran # (Auto) (0.00-0.50) 10^3/uL Add Manual Diff Neutrophils % (Manual) (50-70) % Lymphocytes % (Manual) (20-40) % Monocytes % (Manual) (2-8) % Absolute Neutrophils Lymphocytes # (Manual) Monocytes # (Manual) Sodium 143 (136-145) mmol/L Potassium 3.4 L (3.5-5.1) mmol/L Chloride 108 H (98-107) mmol/L Carbon Dioxide 21.6 (21.0-32.0) mmol/L Anion Gap 16.8 H (5-15) mmol/L BUN 16 (7-18) mg/dL Creatinine 0.40 L (0.51-1.17) mg/dL Est Cr Clr Drug Dosing 102.07 mL/min Estimated GFR (MDRD) > 60 mL/min Glucose 184 H (70-140) mg/dL Lactic Acid 2.4 H 5.2 H (0.4-2.0) mmol/L Calcium 8.2 L (8.7-10.3) mg/dL Total Bilirubin 0.3 (0.2-1.0) mg/dL AST 16 (15-37) U/L ALT 22 (14-63) U/L Alkaline Phosphatase 95 (46-116) U/L Troponin I High Sens (0-51.000) pg/mL B-Natriuretic Peptide (0-100) pg/mL Total Protein 6.4 (6.4-8.2) g/dL Albumin 2.77 L (3.40-5.00) g/dL Specimen Type Urine Color (YELLOW) Urine Appearance (CLEAR) Urine pH (5.0-9.0) Ur Specific [place] (1.005-1.030) Urine Protein (NEGATIVE) mg/dL Urine Glucose (UA) (NEGATIVE) mg/dL Urine Ketones (NEGATIVE) mg/dL Urine Occult Blood (NEGATIVE) Urine Nitrite (NEGATIVE) Urine Bilirubin (NEGATIVE) Urine Urobilinogen (0.2-1.0) E.U./dL Ur Leukocyte Esterase (NEGATIVE) Urine RBC (0-5) /HPF Urine WBC (0-5) /HPF Ur Epithelial Cells /LPF Urine Bacteria (NONE TO FEW) /HPF Urine Mucus (NEGATIVE) /LPF SARS CoV-2 RNA Rapid JASSI (NEGATIVE) 11/03/20 11/03/20 Range/Units 07:35 07:40 WBC 18.66 H (5.00-10.00) 10^3/uL RBC 4.38 (3.80-5.50) 10^6/uL Hgb 13.0 (12.0-16.0) g/dL Hct 39.9 (37.0-47.0) % MCV 91.1 (82.0-92.0) fL MCH 29.7 (27.0-31.0) pg MCHC 32.6 (32.0-36.0) g/dL RDW 14.6 H (11.5-14.5) % Plt Count 157 (150-400) 10^3/uL MPV 11.3 H (7.4-10.4) fL Immature Gran % (Auto) (0.0-5.0) % Neut % (Auto) (50.0-70.0) % Lymph % (Auto) (20.0-40.0) % Ray % (Auto) (2.0-8.0) % Eos % (Auto) (1.0-3.0) % Baso % (Auto) (0.0-1.0) % Neut # (Auto) (2.50-7.00) 10^3/uL Lymph # (Auto) (1.00-4.00) 10^3/uL Ray # (Auto) (0.10-0.80) 10^3/uL Eos # (Auto) (0.10-0.30) 10^3/uL Baso # (Auto) (0.00-0.10) 10^3/uL Immature Gran # (Auto) (0.00-0.50) 10^3/uL Add Manual Diff Yes Neutrophils % (Manual) 92 H (50-70) % Lymphocytes % (Manual) 2 L (20-40) % Monocytes % (Manual) 6 (2-8) % Absolute Neutrophils 17.1672 Lymphocytes # (Manual) 0.3732 Monocytes # (Manual) 1.1196 Sodium (136-145) mmol/L Potassium (3.5-5.1) mmol/L Chloride (98-107) mmol/L Carbon Dioxide (21.0-32.0) mmol/L Anion Gap (5-15) mmol/L BUN (7-18) mg/dL Creatinine (0.51-1.17) mg/dL Est Cr Clr Drug Dosing mL/min Estimated GFR (MDRD) mL/min Glucose (70-140) mg/dL Lactic Acid 3.0 H (0.4-2.0) mmol/L Calcium (8.7-10.3) mg/dL Total Bilirubin (0.2-1.0) mg/dL AST (15-37) U/L ALT (14-63) U/L Alkaline Phosphatase (46-116) U/L Troponin I High Sens (0-51.000) pg/mL B-Natriuretic Peptide (0-100) pg/mL Total Protein (6.4-8.2) g/dL Albumin (3.40-5.00) g/dL Specimen Type Urine Color (YELLOW) Urine Appearance (CLEAR) Urine pH (5.0-9.0) Ur Specific [place] (1.005-1.030) Urine Protein (NEGATIVE) mg/dL Urine Glucose (UA) (NEGATIVE) mg/dL Urine Ketones (NEGATIVE) mg/dL Urine Occult Blood (NEGATIVE) Urine Nitrite (NEGATIVE) Urine Bilirubin (NEGATIVE) Urine Urobilinogen (0.2-1.0) E.U./dL Ur Leukocyte Esterase (NEGATIVE) Urine RBC (0-5) /HPF Urine WBC (0-5) /HPF Ur Epithelial Cells /LPF Urine Bacteria (NONE TO FEW) /HPF Urine Mucus (NEGATIVE) /LPF SARS CoV-2 RNA Rapid JASSI (NEGATIVE) Med Orders - Current: Current Medications Albuterol/Ipratropium (Albuterol/Ipratropium 3.0-0.5 Mg/3 Ml Neb Soln) 3 ml NEB Q2H PRN PRN Reason: dyspnoea Last Admin: 11/03/20 09:18 Dose: 3 ml Documented by: Ceftriaxone Sodium (Ceftriaxone 1 Gm Vial) 1 gm IVPUSH Q24H VIKRAM Last Admin: 11/02/20 13:53 Dose: 1 gm Documented by: Dextrose/Sodium Chloride (Dextrose 5%-Normal Saline) 1,000 mls @ 100 mls/hr IV ASDIRECTED [facility] Last Admin: 11/03/20 08:03 Dose: 100 mls/hr Documented by: Vancomycin HCl 1 gm/ Sodium (Chloride) 250 mls @ 167 mls/hr IV Q12H VIKRAM Last Admin: 11/03/20 08:54 Dose: 167 mls/hr Documented by: Morphine Sulfate (Morphine 2 Mg/Ml Syringe) 1 mg IVPUSH Q4H PRN PRN Reason: Agitation Last Admin: 11/03/20 08:25 Dose: 1 mg Documented by: Vancomycin HCl (Pharmacy To Dose - Vancomycin) 1 dose .XX DAILY VIKRAM Discontinued Medications Albuterol/Ipratropium (Albuterol/Ipratropium 3.0-0.5 Mg/3 Ml Neb Soln) Confirm Administered Dose 3 ml .ROUTE .STK-MED ONE Stop: 11/02/20 12:50 Last Admin: 11/02/20 13:27 Dose: Not Given Documented by: Hydrocortisone Sodium Succinate (Hydrocortisone Sodium Succinate 100 Mg/2 Ml Sdv) 100 mg IVPUSH ONETIME ONE Stop: 11/03/20 03:09 Last Admin: 11/03/20 03:34 Dose: 100 mg Documented by: Sodium Chloride (Normal Saline) 1,000 mls @ 1,000 mls/hr IV BOLUS ONE; Protocol Stop: 11/02/20 11:18 Last Admin: 11/02/20 14:25 Dose: Not Given Documented by: Levofloxacin/Dextrose 250 mg/ (Premix) 50 mls @ 50 mls/hr IV ONETIME ONE Stop: 11/02/20 12:28 Last Admin: 11/02/20 14:00 Dose: 50 mls/hr Documented by: Levofloxacin/Dextrose 500 mg/ (Premix) 100 mls @ 100 mls/hr IV ONETIME ONE Stop: 11/02/20 12:28 Last Admin: 11/02/20 13:00 Dose: 100 mls/hr Documented by: Dextrose/Sodium Chloride (Dextrose 5%-Normal Saline) Confirm Administered Dose 1,000 mls @ as directed .ROUTE .STK-MED ONE Stop: 11/02/20 12:51 Last Admin: 11/02/20 13:26 Dose: Not Given Documented by: Magnesium Sulfate 2 gm/ Premix 50 mls @ 25 mls/hr IV ONETIME ONE Stop: 11/03/20 05:09 Last Admin: 11/03/20 03:37 Dose: 25 mls/hr Documented by: Lorazepam (Lorazepam 2 Mg/Ml Sdv) Confirm Administered Dose 2 mg .ROUTE .STK-MED ONE Stop: 11/03/20 10:11 Methylprednisolone Sodium Succinate (Methylprednisolone Sodium Succinate 125 Mg/2 Ml Sdv) 60 mg IVPUSH ONETIME ONE Stop: 11/02/20 18:15 Last Admin: 11/02/20 18:44 Dose: 60 mg Documented by: Sodium Chloride (Sodium Chloride 0.9% 10 Ml Syringe) 10 ml FLUSH Q8HR PRN PRN Reason: keep vein open - Exam Quality Assessment: Supplemental Oxygen Urinary Catheter Total Time: 0Days 20Hours General: Severe Distress. No: Alert, Oriented, Cooperative Lungs: Crackles, Rhonchi Cardiovascular: Tachycardia GI/Abdominal Exam: Soft (Female) Exam: Deferred Extremities: Pedal Edema Psy/Mental Status: Anxious. No: Alert, Normal Affect - Patient Data Lab Results Last 24 hrs: Laboratory Results - last 24 hr 08/11/02/20 11/02/20 Range/Units 10:08 10:53 10:53 WBC 16.49 H (5.00-10.00) 10^3/uL RBC 4.63 (3.80-5.50) 10^6/uL Hgb 13.7 (12.0-16.0) g/dL Hct 42.9 (37.0-47.0) % MCV 92.7 H (82.0-92.0) fL MCH 29.6 (27.0-31.0) pg MCHC 31.9 L (32.0-36.0) g/dL RDW 14.6 H (11.5-14.5) % Plt Count 176 (150-400) 10^3/uL MPV 11.2 H (7.4-10.4) fL Immature Gran % (Auto) 0.1 (0.0-5.0) % Neut % (Auto) 88.4 H (50.0-70.0) % Lymph % (Auto) 4.2 L (20.0-40.0) % Ray % (Auto) 7.1 (2.0-8.0) % Eos % (Auto) 0.1 L (1.0-3.0) % Baso % (Auto) 0.1 (0.0-1.0) % Neut # (Auto) 14.58 H (2.50-7.00) 10^3/uL Lymph # (Auto) 0.69 L (1.00-4.00) 10^3/uL Ray # (Auto) 1.17 H (0.10-0.80) 10^3/uL Eos # (Auto) 0.01 L (0.10-0.30) 10^3/uL Baso # (Auto) 0.02 (0.00-0.10) 10^3/uL Immature Gran # (Auto) 0.02 (0.00-0.50) 10^3/uL Add Manual Diff Neutrophils % (Manual) (50-70) % Lymphocytes % (Manual) (20-40) % Monocytes % (Manual) (2-8) % Absolute Neutrophils Lymphocytes # (Manual) Monocytes # (Manual) Sodium 140 (136-145) mmol/L Potassium 3.9 (3.5-5.1) mmol/L Chloride 108 H (98-107) mmol/L Carbon Dioxide 21.2 (21.0-32.0) mmol/L Anion Gap 14.7 (5-15) mmol/L BUN 22 H (7-18) mg/dL Creatinine 0.45 L (0.51-1.17) mg/dL Est Cr Clr Drug Dosing 90.73 mL/min Estimated GFR (MDRD) > 60 mL/min Glucose 131 (70-140) mg/dL Lactic Acid (0.4-2.0) mmol/L Calcium 8.1 L (8.7-10.3) mg/dL Total Bilirubin 0.5 (0.2-1.0) mg/dL AST 23 (15-37) U/L ALT 21 (14-63) U/L Alkaline Phosphatase 101 (46-116) U/L Troponin I High Sens 9.000 (0-51.000) pg/mL B-Natriuretic Peptide (0-100) pg/mL Total Protein 6.3 L (6.4-8.2) g/dL Albumin 2.67 L (3.40-5.00) g/dL Specimen Type Urine Color (YELLOW) Urine Appearance (CLEAR) Urine pH (5.0-9.0) Ur Specific [place] (1.005-1.030) Urine Protein (NEGATIVE) mg/dL Urine Glucose (UA) (NEGATIVE) mg/dL Urine Ketones (NEGATIVE) mg/dL Urine Occult Blood (NEGATIVE) Urine Nitrite (NEGATIVE) Urine Bilirubin (NEGATIVE) Urine Urobilinogen (0.2-1.0) E.U./dL Ur Leukocyte Esterase (NEGATIVE) Urine RBC (0-5) /HPF Urine WBC (0-5) /HPF Ur Epithelial Cells /LPF Urine Bacteria (NONE TO FEW) /HPF Urine Mucus (NEGATIVE) /LPF SARS CoV-2 RNA Rapid JASSI Negative (NEGATIVE) 11/02/20 11/02/20 11/02/20 Range/Units 10:53 10:53 11:05 WBC (5.00-10.00) 10^3/uL RBC (3.80-5.50) 10^6/uL Hgb (12.0-16.0) g/dL Hct (37.0-47.0) % MCV (82.0-92.0) fL MCH (27.0-31.0) pg MCHC (32.0-36.0) g/dL RDW (11.5-14.5) % Plt Count (150-400) 10^3/uL MPV (7.4-10.4) fL Immature Gran % (Auto) (0.0-5.0) % Neut % (Auto) (50.0-70.0) % Lymph % (Auto) (20.0-40.0) % Ray % (Auto) (2.0-8.0) % Eos % (Auto) (1.0-3.0) % Baso % (Auto) (0.0-1.0) % Neut # (Auto) (2.50-7.00) 10^3/uL Lymph # (Auto) (1.00-4.00) 10^3/uL Ray # (Auto) (0.10-0.80) 10^3/uL Eos # (Auto) (0.10-0.30) 10^3/uL Baso # (Auto) (0.00-0.10) 10^3/uL Immature Gran # (Auto) (0.00-0.50) 10^3/uL Add Manual Diff Neutrophils % (Manual) (50-70) % Lymphocytes % (Manual) (20-40) % Monocytes % (Manual) (2-8) % Absolute Neutrophils Lymphocytes # (Manual) Monocytes # (Manual) Sodium (136-145) mmol/L Potassium (3.5-5.1) mmol/L Chloride (98-107) mmol/L Carbon Dioxide (21.0-32.0) mmol/L Anion Gap (5-15) mmol/L BUN (7-18) mg/dL Creatinine (0.51-1.17) mg/dL Est Cr Clr Drug Dosing mL/min Estimated GFR (MDRD) mL/min Glucose (70-140) mg/dL Lactic Acid 2.6 H (0.4-2.0) mmol/L Calcium (8.7-10.3) mg/dL Total Bilirubin (0.2-1.0) mg/dL AST (15-37) U/L ALT (14-63) U/L Alkaline Phosphatase (46-116) U/L Troponin I High Sens (0-51.000) pg/mL B-Natriuretic Peptide 103 H (0-100) pg/mL Total Protein (6.4-8.2) g/dL Albumin (3.40-5.00) g/dL Specimen Type Urinvoid Urine Color Yellow (YELLOW) Urine Appearance Slightly cloudy H (CLEAR) Urine pH 5.5 (5.0-9.0) Ur Specific [place] >= 1.030 (1.005-1.030) Urine Protein 100 H (NEGATIVE) mg/dL Urine Glucose (UA) Negative (NEGATIVE) mg/dL Urine Ketones Trace H (NEGATIVE) mg/dL Urine Occult Blood Large H (NEGATIVE) Urine Nitrite Positive H (NEGATIVE) Urine Bilirubin Small H (NEGATIVE) Urine Urobilinogen 0.2 (0.2-1.0) E.U./dL Ur Leukocyte Esterase Small H (NEGATIVE) Urine RBC 30-40 H (0-5) /HPF Urine WBC 40-50 H (0-5) /HPF Ur Epithelial Cells Few /LPF Urine Bacteria Many H (NONE TO FEW) /HPF Urine Mucus Few H (NEGATIVE) /LPF SARS CoV-2 RNA Rapid JASSI (NEGATIVE) 11/02/20 11/02/20 11/03/20 Range/Units 13:45 17:45 07:35 WBC (5.00-10.00) 10^3/uL RBC (3.80-5.50) 10^6/uL Hgb (12.0-16.0) g/dL Hct (37.0-47.0) % MCV (82.0-92.0) fL MCH (27.0-31.0) pg MCHC (32.0-36.0) g/dL RDW (11.5-14.5) % Plt Count (150-400) 10^3/uL MPV (7.4-10.4) fL Immature Gran % (Auto) (0.0-5.0) % Neut % (Auto) (50.0-70.0) % Lymph % (Auto) (20.0-40.0) % Ray % (Auto) (2.0-8.0) % Eos % (Auto) (1.0-3.0) % Baso % (Auto) (0.0-1.0) % Neut # (Auto) (2.50-7.00) 10^3/uL Lymph # (Auto) (1.00-4.00) 10^3/uL Ray # (Auto) (0.10-0.80) 10^3/uL Eos # (Auto) (0.10-0.30) 10^3/uL Baso # (Auto) (0.00-0.10) 10^3/uL Immature Gran # (Auto) (0.00-0.50) 10^3/uL Add Manual Diff Neutrophils % (Manual) (50-70) % Lymphocytes % (Manual) (20-40) % Monocytes % (Manual) (2-8) % Absolute Neutrophils Lymphocytes # (Manual) Monocytes # (Manual) Sodium 143 (136-145) mmol/L Potassium 3.4 L (3.5-5.1) mmol/L Chloride 108 H (98-107) mmol/L Carbon Dioxide 21.6 (21.0-32.0) mmol/L Anion Gap 16.8 H (5-15) mmol/L BUN 16 (7-18) mg/dL Creatinine 0.40 L (0.51-1.17) mg/dL Est Cr Clr Drug Dosing 102.07 mL/min Estimated GFR (MDRD) > 60 mL/min Glucose 184 H (70-140) mg/dL Lactic Acid 2.4 H 5.2 H (0.4-2.0) mmol/L Calcium 8.2 L (8.7-10.3) mg/dL Total Bilirubin 0.3 (0.2-1.0) mg/dL AST 16 (15-37) U/L ALT 22 (14-63) U/L Alkaline Phosphatase 95 (46-116) U/L Troponin I High Sens (0-51.000) pg/mL B-Natriuretic Peptide (0-100) pg/mL Total Protein 6.4 (6.4-8.2) g/dL Albumin 2.77 L (3.40-5.00) g/dL Specimen Type Urine Color (YELLOW) Urine Appearance (CLEAR) Urine pH (5.0-9.0) Ur Specific [place] (1.005-1.030) Urine Protein (NEGATIVE) mg/dL Urine Glucose (UA) (NEGATIVE) mg/dL Urine Ketones (NEGATIVE) mg/dL Urine Occult Blood (NEGATIVE) Urine Nitrite (NEGATIVE) Urine Bilirubin (NEGATIVE) Urine Urobilinogen (0.2-1.0) E.U./dL Ur Leukocyte Esterase (NEGATIVE) Urine RBC (0-5) /HPF Urine WBC (0-5) /HPF Ur Epithelial Cells /LPF Urine Bacteria (NONE TO FEW) /HPF Urine Mucus (NEGATIVE) /LPF SARS CoV-2 RNA Rapid JASSI (NEGATIVE) 11/03/20 11/03/20 Range/Units 07:35 07:40 WBC 18.66 H (5.00-10.00) 10^3/uL RBC 4.38 (3.80-5.50) 10^6/uL Hgb 13.0 (12.0-16.0) g/dL Hct 39.9 (37.0-47.0) % MCV 91.1 (82.0-92.0) fL MCH 29.7 (27.0-31.0) pg MCHC 32.6 (32.0-36.0) g/dL RDW 14.6 H (11.5-14.5) % Plt Count 157 (150-400) 10^3/uL MPV 11.3 H (7.4-10.4) fL Immature Gran % (Auto) (0.0-5.0) % Neut % (Auto) (50.0-70.0) % Lymph % (Auto) (20.0-40.0) % Ray % (Auto) (2.0-8.0) % Eos % (Auto) (1.0-3.0) % Baso % (Auto) (0.0-1.0) % Neut # (Auto) (2.50-7.00) 10^3/uL Lymph # (Auto) (1.00-4.00) 10^3/uL Ray # (Auto) (0.10-0.80) 10^3/uL Eos # (Auto) (0.10-0.30) 10^3/uL Baso # (Auto) (0.00-0.10) 10^3/uL Immature Gran # (Auto) (0.00-0.50) 10^3/uL Add Manual Diff Yes Neutrophils % (Manual) 92 H (50-70) % Lymphocytes % (Manual) 2 L (20-40) % Monocytes % (Manual) 6 (2-8) % Absolute Neutrophils 17.1672 Lymphocytes # (Manual) 0.3732 Monocytes # (Manual) 1.1196 Sodium (136-145) mmol/L Potassium (3.5-5.1) mmol/L Chloride (98-107) mmol/L Carbon Dioxide (21.0-32.0) mmol/L Anion Gap (5-15) mmol/L BUN (7-18) mg/dL Creatinine (0.51-1.17) mg/dL Est Cr Clr Drug Dosing mL/min Estimated GFR (MDRD) mL/min Glucose (70-140) mg/dL Lactic Acid 3.0 H (0.4-2.0) mmol/L Calcium (8.7-10.3) mg/dL Total Bilirubin (0.2-1.0) mg/dL AST (15-37) U/L ALT (14-63) U/L Alkaline Phosphatase (46-116) U/L Troponin I High Sens (0-51.000) pg/mL B-Natriuretic Peptide (0-100) pg/mL Total Protein (6.4-8.2) g/dL Albumin (3.40-5.00) g/dL Specimen Type Urine Color (YELLOW) Urine Appearance (CLEAR) Urine pH (5.0-9.0) Ur Specific [place] (1.005-1.030) Urine Protein (NEGATIVE) mg/dL Urine Glucose (UA) (NEGATIVE) mg/dL Urine Ketones (NEGATIVE) mg/dL Urine Occult Blood (NEGATIVE) Urine Nitrite (NEGATIVE) Urine Bilirubin (NEGATIVE) Urine Urobilinogen (0.2-1.0) E.U./dL Ur Leukocyte Esterase (NEGATIVE) Urine RBC (0-5) /HPF Urine WBC (0-5) /HPF Ur Epithelial Cells /LPF Urine Bacteria (NONE TO FEW) /HPF Urine Mucus (NEGATIVE) /LPF SARS CoV-2 RNA Rapid JASSI (NEGATIVE) Result Diagrams: 11/03/20 07:40 11/03/20 07:35 Sepsis Event Note - Evaluation Sepsis Screening Result: Severe Sepsis Risk - Focused Exam Vital Signs: Vital Signs Temp Pulse Resp BP BP Pulse Ox Pulse Ox 11/03/20 08:30 97.1 F 134 H 25 H 108/88 92 L 11/03/20 06:52 94 L 11/03/20 06:01 97.4 F 119 H 24 H 114/66 94 L 11/03/20 04:45 151 H 92 L 11/03/20 03:00 98.7 F 162 H 24 H 122/86 92 L 11/03/20 02:24 156 H 92 L - Problem List Review Problem List Initiated/Reviewed/Updated: Yes - My Orders Last 24 Hours: My Active Orders 11/02/20 11:05 URINE ID [[id number]] Routine 11/05/20 08:30 VANCOMYCIN TROUGH [CHEM] Routine - Plan Plan:: Brief history summary, Ms Arora is a 75-year-old female that has been medically deteriorating over the past few weeks mainly the past 2 weeks was admitted yesterday due to sepsis thought to be urological etiology. She came through ED from the detention with hypoxia shortness of breath with hypotension seem to be responding with fluids. She was placed on antibiotics, steroids, IV fluid resuscitation Hospital course 11/03/2020; this morning during rounds patient will only open eyes when spoken to, thrashing around in bed, acutely agitated to the point to where nurses reported fell OOB after climibing over the rails, not cooperative--acute agitation. Afebrile however tachycardia, blood pressure adequate, O2 nasal cannula 4 to 5 L, mouth breathing with tachypnea. Adequate output via indwelling Montoya catheter--however urine is darkening up. Repeat chest x-ray, cardiomegaly with vascular congestion, patchy airspace edema with pleural effusion and possible infiltrate. Ativan IV push given, patient much more calm however nurses reported during suctioning large amount of dark emesis Primary hospital problems --Acute respiratory failure, hypoxemia, shortness of breath, confusion tachypneic, tachycardia, --Clinical pneumonia, suspect, --Agitation due to hypoxia, likely hypercapnia, Chronic problems Hypercholesterolemia, Hold ALL PO meds. Venous insufficiency/Chronic lymphedema, wide renata-wraps, will also help support BP Obesity, Trigeminal neuralgia, carbamazepine therapy, Hold ALL PO meds. Vitamin D deficiency, supplemental vitamin D. Hold ALL PO meds. GERD/without esophagitis, Add Protonix IVP Osteoporosis, Fosamax Hold ALL PO meds. Osteoarthritis bilateral knees Disposition/overall plan --Patient is in grave condition, doubtful she survives this hospital stay, family/POA at bedside and collectively we communicated the plan to include co ntinue antibiotics, however familly is desiring no life saving interventions, meds to improve comfort. --Lasix IVP --IV mag --IV change to TKO --Increase Solumedrol to q8 --Montoya for dignity and I/O --Holding PO Meds
[2020-11-03] MEDS ORDERED: Sodium Chloride 0.9% 250 ML IV SCH (11:00)
[2020-11-03] MEDS ORDERED: Levofloxacin/Dextrose 5%-Water 500 MG in Premix Bag 1 BAG IV SCH (11:00)
[2020-11-03] MEDS: Pantoprazole 40 MG Vial IVPUSH SCH (11:02)
[2020-11-03] MEDS: methylPREDNISolone Sodium Succinate 125 MG/2 ML SDV IVPUSH SCH ×2 (11:15→19:18)
[2020-11-03] MEDS ORDERED: Glycopyrrolate 0.2 MG/ML SDV IVPUSH PRN (11:44)
[2020-11-03] MEDS ORDERED: Levofloxacin/Dextrose 5%-Water 250 MG in Premix Bag 1 BAG IV SCH (12:00)
[2020-11-03] MEDS ORDERED: Glycopyrrolate 0.2 MG/ML SDV IVPUSH SCH (12:44)
[2020-11-03] MEDS ORDERED: Sodium Chloride 0.9% 1,000 ML IV ONE (14:43)
[2020-11-03] MEDS: cefTRIAXone 1 GM Vial IVPUSH SCH (15:02)
[2020-11-03] MEDS: Glycopyrrolate 0.2 MG/ML SDV IVPUSH PRN ×3 (15:11→22:21)
[2020-11-04] MEDS: Glycopyrrolate 0.2 MG/ML SDV IVPUSH PRN ×11 (01:52→22:55)
[2020-11-04] MEDS: Morphine 2 MG/ML SYRINGE IVPUSH PRN ×9 (01:52→22:55)
[2020-11-04] MEDS: LORazepam 2 MG/ML SDV IVPUSH PRN ×3 (04:23→18:21)
[2020-11-04 08:02] LABS: ANION GAP 13.3 mmol/L (5-15)
[2020-11-04] MEDS: Pantoprazole 40 MG Vial IVPUSH SCH (08:35)
--- NOTE | 2020-11-04 09:31 | PCM.PN ---
- General Info Date of Service: 11/04/20 Subjective Update: No review of systems patient unresponsive, - Patient Data Vitals - Most Recent: Last Vital Signs Temp 97.5 F 11/03/20 21:00 Pulse 118 H 11/04/20 08:51 Resp 26 H 11/04/20 08:51 BP 72/47 L 11/04/20 08:51 Pulse Ox 90 L 11/04/20 08:51 Weight - Most Recent: 162 lb 3 oz I&O - Last 24 Hours: Intake & Output 11/03/20 11/04/20 11/04/20 22:59 06:59 14:59 Intake Total 316 Output Total 375 0 Balance -59 0 Lab Results Last 24 Hours: Laboratory Results - last 24 hr 11/03/20 11/04/20 11/04/20 Range/Units 07:35 07:05 07:05 WBC 13.12 H (5.00-10.00) 10^3/uL RBC 4.51 (3.80-5.50) 10^6/uL Hgb 13.5 (12.0-16.0) g/dL Hct 45.2 (37.0-47.0) % MCV 100.2 H D (82.0-92.0) fL MCH 29.9 (27.0-31.0) pg MCHC 29.9 L (32.0-36.0) g/dL RDW 14.4 (11.5-14.5) % Plt Count 155 (150-400) 10^3/uL MPV 11.7 H (7.4-10.4) fL Immature Gran % (Auto) 0.5 (0.0-5.0) % Neut % (Auto) 86.9 H (50.0-70.0) % Lymph % (Auto) 3.7 L (20.0-40.0) % Wise % (Auto) 8.7 H (2.0-8.0) % Eos % (Auto) 0.0 L (1.0-3.0) % Baso % (Auto) 0.2 (0.0-1.0) % Neut # (Auto) 11.41 H (2.50-7.00) 10^3/uL Lymph # (Auto) 0.49 L (1.00-4.00) 10^3/uL Wise # (Auto) 1.14 H (0.10-0.80) 10^3/uL Eos # (Auto) 0.00 L (0.10-0.30) 10^3/uL Baso # (Auto) 0.02 (0.00-0.10) 10^3/uL Immature Gran # (Auto) 0.06 (0.00-0.50) 10^3/uL Sodium 144 (136-145) mmol/L Potassium 5.1 D (3.5-5.1) mmol/L Chloride 111 H (98-107) mmol/L Carbon Dioxide 24.8 (21.0-32.0) mmol/L Anion Gap 13.3 (5-15) mmol/L BUN 34 H (7-18) mg/dL Creatinine 1.56 H (0.51-1.17) mg/dL Est Cr Clr Drug Dosing 26.17 mL/min Estimated GFR (MDRD) 32 mL/min Glucose 119 (70-140) mg/dL Calcium 8.1 L (8.7-10.3) mg/dL Magnesium 2.5 H 2.5 H (1.8-2.4) mg/dL Trevin Results Last 24 Hours: Microbiology 11/02/20 10:53 Aerobic Blood Culture - Preliminary Blood - Venous NO GROWTH AFTER 1 DAY Anaerobic Blood Culture - Preliminary NO GROWTH AFTER 1 DAY 11/02/20 10:53 Aerobic Blood Culture - Preliminary Blood - Venous - Lab Draw NO GROWTH AFTER 1 DAY Anaerobic Blood Culture - Preliminary NO GROWTH AFTER 1 DAY Med Orders - Current: Current Medications Albuterol/Ipratropium (Albuterol/Ipratropium 3.0-0.5 Mg/3 Ml Neb Soln) 3 ml NEB Q2H PRN PRN Reason: dyspnoea Last Admin: 11/03/20 09:18 Dose: 3 ml Documented by: Glycopyrrolate (Glycopyrrolate 0.2 Mg/Ml Sdv) 0.2 mg IVPUSH Q2H PRN PRN Reason: Congestion Last Admin: 11/04/20 08:28 Dose: 0.2 mg Documented by: Lorazepam (Lorazepam 2 Mg/Ml Sdv) 0.5 mg IVPUSH Q6H PRN PRN Reason: Agitation Last Admin: 11/04/20 04:23 Dose: 0.5 mg Documented by: Morphine Sulfate (Morphine 2 Mg/Ml Syringe) 2 mg IVPUSH Q2H PRN PRN Reason: Agitation Last Admin: 11/04/20 08:27 Dose: 2 mg Documented by: Pantoprazole Sodium (Pantoprazole 40 Mg Vial) 40 mg IVPUSH DAILY [facility] Last Admin: 11/04/20 08:35 Dose: 40 mg Documented by: Discontinued Medications Albuterol/Ipratropium (Albuterol/Ipratropium 3.0-0.5 Mg/3 Ml Neb Soln) Confirm Administered Dose 3 ml .ROUTE .STK-MED ONE Stop: 11/02/20 12:50 Last Admin: 11/02/20 13:27 Dose: Not Given Documented by: Ceftriaxone Sodium (Ceftriaxone 1 Gm Vial) 1 gm IVPUSH Q24H [facility] Last Admin: 11/03/20 15:02 Dose: 1 gm Documented by: Furosemide (Furosemide 40 Mg/4 Ml Vial) 40 mg IVPUSH NOW ONE Stop: 11/03/20 10:53 Last Admin: 11/03/20 10:56 Dose: 40 mg Documented by: Glycopyrrolate (Glycopyrrolate 0.2 Mg/Ml Sdv) 0.2 mg IVPUSH Q4HR PRN PRN Reason: secretions Last Admin: 11/03/20 11:47 Dose: 0.2 mg Documented by: Glycopyrrolate (Glycopyrrolate 0.2 Mg/Ml Sdv) 0.2 mg IVPUSH ONETIME [facility] Last Admin: 11/03/20 12:44 Dose: 0.2 mg Documented by: Hydrocortisone Sodium Succinate (Hydrocortisone Sodium Succinate 100 Mg/2 Ml Sdv) 100 mg IVPUSH ONETIME ONE Stop: 11/03/20 03:09 Last Admin: 11/03/20 03:34 Dose: 100 mg Documented by: Sodium Chloride (Normal Saline) 1,000 mls @ 1,000 mls/hr IV BOLUS ONE; Protocol Stop: 11/02/20 11:18 Last Admin: 11/02/20 14:25 Dose: Not Given Documented by: Levofloxacin/Dextrose 250 mg/ (Premix) 50 mls @ 50 mls/hr IV ONETIME ONE Stop: 11/02/20 12:28 Last Admin: 11/02/20 14:00 Dose: 50 mls/hr Documented by: Levofloxacin/Dextrose 500 mg/ (Premix) 100 mls @ 100 mls/hr IV ONETIME ONE Stop: 11/02/20 12:28 Last Admin: 11/02/20 13:00 Dose: 100 mls/hr Documented by: Dextrose/Sodium Chloride (Dextrose 5%-Normal Saline) Confirm Administered Dose 1,000 mls @ as directed .ROUTE .STK-MED ONE Stop: 11/02/20 12:51 Last Admin: 11/02/20 13:26 Dose: Not Given Documented by: Dextrose/Sodium Chloride (Dextrose 5%-Normal Saline) 1,000 mls @ 100 mls/hr IV ASDIRECTED [facility] Last Admin: 11/03/20 08:03 Dose: 100 mls/hr Documented by: Magnesium Sulfate 2 gm/ Premix 50 mls @ 25 mls/hr IV ONETIME ONE Stop: 11/03/20 05:09 Last Admin: 11/03/20 03:37 Dose: 25 mls/hr Documented by: Vancomycin HCl 1 gm/ Sodium (Chloride) 250 mls @ 167 mls/hr IV Q12H [facility] Last Admin: 11/03/20 21:05 Dose: 167 mls/hr Documented by: Sodium Chloride (Normal Saline) 250 mls @ 50 mls/hr IV ASDIRECTED [facility] Levofloxacin/Dextrose 250 mg/ (Premix) 50 mls @ 50 mls/hr IV Q24H [facility] Last Admin: 11/03/20 16:32 Dose: 50 mls/hr Documented by: Levofloxacin/Dextrose 500 mg/ (Premix) 100 mls @ 100 mls/hr IV Q24H [facility] Last Admin: 11/03/20 15:12 Dose: 100 mls/hr Documented by: Magnesium Sulfate 2 gm/ Premix 50 mls @ 150 mls/hr IV ONETIME ONE Stop: 11/03/20 11:16 Last Admin: 11/03/20 19:22 Dose: Not Given Documented by: Sodium Chloride (Normal Saline) 1,000 mls @ 50 mls/hr IV ASDIRECTED ONE Stop: 11/04/20 10:42 Last Admin: 11/03/20 15:05 Dose: 50 mls/hr Documented by: Lorazepam (Lorazepam 2 Mg/Ml Sdv) Confirm Administered Dose 2 mg .ROUTE .STK-MED ONE Stop: 11/03/20 10:11 Last Admin: 11/03/20 10:25 Dose: Not Given Documented by: Methylprednisolone Sodium Succinate (Methylprednisolone Sodium Succinate 125 Mg/2 Ml Sdv) 60 mg IVPUSH ONETIME ONE Stop: 11/02/20 18:15 Last Admin: 11/02/20 18:44 Dose: 60 mg Documented by: Methylprednisolone Sodium Succinate (Methylprednisolone Sodium Succinate 125 Mg/2 Ml Sdv) 60 mg IVPUSH Q8H [facility] Last Admin: 11/03/20 19:18 Dose: 60 mg Documented by: Morphine Sulfate (Morphine 2 Mg/Ml Syringe) 1 mg IVPUSH Q4H PRN PRN Reason: Agitation Last Admin: 11/03/20 08:25 Dose: 1 mg Documented by: Morphine Sulfate (Morphine 2 Mg/Ml Syringe) 1 mg IVPUSH Q8H PRN PRN Reason: Agitation Sodium Chloride (Sodium Chloride 0.9% 10 Ml Syringe) 10 ml FLUSH Q8HR PRN PRN Reason: keep vein open Vancomycin HCl (Pharmacy To Dose - Vancomycin) 1 dose .XX DAILY [facility] Last Admin: 11/04/20 00:10 Dose: Not Given Documented by: - Exam Quality Assessment: Supplemental Oxygen Urinary Catheter Total Time: 1Days 20Hours General: No: Alert, Oriented Lungs: Crackles, Rhonchi Cardiovascular: Tachycardia GI/Abdominal Exam: No: Distended Extremities: Pedal Edema Skin: Other (Pallor lower extremities, no mottling) - Patient Data Lab Results Last 24 hrs: Laboratory Results - last 24 hr 11/03/20 11/04/20 11/04/20 Range/Units 07:35 07:05 07:05 WBC 13.12 H (5.00-10.00) 10^3/uL RBC 4.51 (3.80-5.50) 10^6/uL Hgb 13.5 (12.0-16.0) g/dL Hct 45.2 (37.0-47.0) % MCV 100.2 H D (82.0-92.0) fL MCH 29.9 (27.0-31.0) pg MCHC 29.9 L (32.0-36.0) g/dL RDW 14.4 (11.5-14.5) % Plt Count 155 (150-400) 10^3/uL MPV 11.7 H (7.4-10.4) fL Immature Gran % (Auto) 0.5 (0.0-5.0) % Neut % (Auto) 86.9 H (50.0-70.0) % Lymph % (Auto) 3.7 L (20.0-40.0) % Wise % (Auto) 8.7 H (2.0-8.0) % Eos % (Auto) 0.0 L (1.0-3.0) % Baso % (Auto) 0.2 (0.0-1.0) % Neut # (Auto) 11.41 H (2.50-7.00) 10^3/uL Lymph # (Auto) 0.49 L (1.00-4.00) 10^3/uL Wise # (Auto) 1.14 H (0.10-0.80) 10^3/uL Eos # (Auto) 0.00 L (0.10-0.30) 10^3/uL Baso # (Auto) 0.02 (0.00-0.10) 10^3/uL Immature Gran # (Auto) 0.06 (0.00-0.50) 10^3/uL Sodium 144 (136-145) mmol/L Potassium 5.1 D (3.5-5.1) mmol/L Chloride 111 H (98-107) mmol/L Carbon Dioxide 24.8 (21.0-32.0) mmol/L Anion Gap 13.3 (5-15) mmol/L BUN 34 H (7-18) mg/dL Creatinine 1.56 H (0.51-1.17) mg/dL Est Cr Clr Drug Dosing 26.17 mL/min Estimated GFR (MDRD) 32 mL/min Glucose 119 (70-140) mg/dL Calcium 8.1 L (8.7-10.3) mg/dL Magnesium 2.5 H 2.5 H (1.8-2.4) mg/dL Result Diagrams: 11/04/20 07:05 11/04/20 07:05 Trevin Results Last 24 hrs: Microbiology 11/02/20 10:53 Aerobic Blood Culture - Preliminary Blood - Venous NO GROWTH AFTER 1 DAY Anaerobic Blood Culture - Preliminary NO GROWTH AFTER 1 DAY 11/02/20 10:53 Aerobic Blood Culture - Preliminary Blood - Venous - Lab Draw NO GROWTH AFTER 1 DAY Anaerobic Blood Culture - Preliminary NO GROWTH AFTER 1 DAY Sepsis Event Note - Evaluation Sepsis Screening Result: Severe Sepsis Risk - Focused Exam Vital Signs: Vital Signs Pulse Resp BP Pulse Ox Pulse Ox 11/04/20 08:51 118 H 26 H 72/47 L 90 L 11/04/20 05:00 76 L - Problem List Review Problem List Initiated/Reviewed/Updated: Yes - My Orders Last 24 Hours: My Active Orders 11/03/20 10:43 LORazepam [Ativan] 0.5 mg IVPUSH Q6H PRN 11/03/20 10:45 Pantoprazole [ProTONIX IV] 40 mg IVPUSH DAILY 11/03/20 11:22 Morphine 2 mg IVPUSH Q2H PRN 11/03/20 15:04 Glycopyrrolate [Robinul] 0.2 mg IVPUSH Q2H PRN - Plan Plan:: Brief history summary, Ms Arora is a 75-year-old female that has been medically deteriorating over the past few weeks mainly the past 2 weeks was admitted yesterday due to sepsis thought to be urological etiology. She came through ED from the correction with hypoxia shortness of breath with hypotension seem to be responding with fluids. She was placed on antibiotics, steroids, IV fluid resuscitation __ Hospital course 11/03/2020; this morning during rounds patient will only open eyes when spoken to, thrashing around in bed, acutely agitated to the point to where nurses reported fell OOB after climibing over the rails, not cooperative--acute agitation. Afebrile however tachycardia, blood pressure adequate, O2 nasal cannula 4 to 5 L, mouth breathing with tachypnea. Adequate output via indwelling Montoya catheter--however urine is darkening up. Repeat chest x-ray, cardiomegaly with vascular congestion, patchy airspace edema with pleural effusion and possible infiltrate. Ativan IV push given, patient much more calm however nurses reported during suctioning large amount of dark emesis 11/04/2020; patient had significant dark emesis approximately 1 L between 2 voluminous emesis yesterday, nurses reported not able to pass NG tube, Protonix added, instructed nurses could put an OG if needed however patient has not had any emesis since. Resting comfortably. Received a call last night regarding tachypneic, low blood pressure, stopped all antibiotics, steroids, placed in comfort care palliative care Primary hospital problems --Acute respiratory failure Chronic problems Hypercholesterolemia, Hold ALL PO meds. Venous insufficiency/Chronic lymphedema, wide renata-wraps, will also help support BP Obesity, Trigeminal neuralgia, carbamazepine therapy, Hold ALL PO meds. Vitamin D deficiency, supplemental vitamin D. Hold ALL PO meds. GERD/without esophagitis, Added Protonix IVP Osteoporosis, Fosamax Hold ALL PO meds. Osteoarthritis bilateral knees Disposition/overall plan --Patient was placed in comfort/palliative care, family at bedside holding amezquita at bedside, quite comfortable, morphine Ativan as directed as needed. Suction, Lindsay Xie for dignity. Spent time with family this morning, many questions answered, they are very appreciative of the care received here at [facility], thank you nurses for excellent end-of-life care--a testament to training and character. Expectant management
[2020-11-05] MEDS: LORazepam 2 MG/ML SDV IVPUSH PRN (00:50)
[2020-11-05] MEDS: Glycopyrrolate 0.2 MG/ML SDV IVPUSH PRN ×4 (00:54→09:07)
[2020-11-05] MEDS: Morphine 2 MG/ML SYRINGE IVPUSH PRN ×4 (00:54→09:09)
[2020-11-05] MEDS: Pantoprazole 40 MG Vial IVPUSH SCH (08:57)
--- NOTE | 2020-11-05 14:01 | PCM.PN ---
- General Info Date of Service: 11/05/20 - Patient Data Vitals - Most Recent: Last Vital Signs Temp 97.5 F 11/03/20 21:00 Pulse 118 H 11/04/20 08:51 Resp 26 H 11/04/20 08:51 BP 72/47 L 11/04/20 08:51 Pulse Ox 90 L 11/04/20 08:51 Weight - Most Recent: 162 lb 3 oz I&O - Last 24 Hours: Intake & Output 11/04/20 11/05/20 11/05/20 22:59 06:59 14:59 Output Total 0 50 Balance 0 -50 Trevin Results Last 24 Hours: Microbiology 11/02/20 10:53 Aerobic Blood Culture - Preliminary Blood - Venous NO GROWTH AFTER 3 DAYS Anaerobic Blood Culture - Preliminary NO GROWTH AFTER 3 DAYS 11/02/20 11:05 Bacterial ID and Susceptibility - Final Urine Klebsiella Pneumonia Ss Pneumo 11/02/20 10:53 Aerobic Blood Culture - Preliminary Blood - Venous - Lab Draw NO GROWTH AFTER 3 DAYS Anaerobic Blood Culture - Preliminary NO GROWTH AFTER 3 DAYS Med Orders - Current: Current Medications Albuterol/Ipratropium (Albuterol/Ipratropium 3.0-0.5 Mg/3 Ml Neb Soln) 3 ml NEB Q2H PRN PRN Reason: dyspnoea Last Admin: 11/03/20 09:18 Dose: 3 ml Documented by: Glycopyrrolate (Glycopyrrolate 0.2 Mg/Ml Sdv) 0.2 mg IVPUSH Q2H PRN PRN Reason: Congestion Last Admin: 11/05/20 09:07 Dose: 0.2 mg Documented by: Lorazepam (Lorazepam 2 Mg/Ml Sdv) 0.5 mg IVPUSH Q6H PRN PRN Reason: Agitation Last Admin: 11/05/20 00:50 Dose: 0.5 mg Documented by: Morphine Sulfate (Morphine 2 Mg/Ml Syringe) 2 mg IVPUSH Q2H PRN PRN Reason: Agitation Last Admin: 11/05/20 09:09 Dose: 2 mg Documented by: Pantoprazole Sodium (Pantoprazole 40 Mg Vial) 40 mg IVPUSH DAILY [facility] Last Admin: 11/05/20 08:57 Dose: 40 mg Documented by: Discontinued Medications Albuterol/Ipratropium (Albuterol/Ipratropium 3.0-0.5 Mg/3 Ml Neb Soln) Confirm Administered Dose 3 ml .ROUTE .STK-MED ONE Stop: 11/02/20 12:50 Last Admin: 11/02/20 13:27 Dose: Not Given Documented by: Ceftriaxone Sodium (Ceftriaxone 1 Gm Vial) 1 gm IVPUSH Q24H [facility] Last Admin: 11/03/20 15:02 Dose: 1 gm Documented by: Furosemide (Furosemide 40 Mg/4 Ml Vial) 40 mg IVPUSH NOW ONE Stop: 11/03/20 10:53 Last Admin: 11/03/20 10:56 Dose: 40 mg Documented by: Glycopyrrolate (Glycopyrrolate 0.2 Mg/Ml Sdv) 0.2 mg IVPUSH Q4HR PRN PRN Reason: secretions Last Admin: 11/03/20 11:47 Dose: 0.2 mg Documented by: Glycopyrrolate (Glycopyrrolate 0.2 Mg/Ml Sdv) 0.2 mg IVPUSH ONETIME [facility] Last Admin: 11/03/20 12:44 Dose: 0.2 mg Documented by: Hydrocortisone Sodium Succinate (Hydrocortisone Sodium Succinate 100 Mg/2 Ml Sdv) 100 mg IVPUSH ONETIME ONE Stop: 11/03/20 03:09 Last Admin: 11/03/20 03:34 Dose: 100 mg Documented by: Sodium Chloride (Normal Saline) 1,000 mls @ 1,000 mls/hr IV BOLUS ONE; Protocol Stop: 11/02/20 11:18 Last Admin: 11/02/20 14:25 Dose: Not Given Documented by: Levofloxacin/Dextrose 250 mg/ (Premix) 50 mls @ 50 mls/hr IV ONETIME ONE Stop: 11/02/20 12:28 Last Admin: 11/02/20 14:00 Dose: 50 mls/hr Documented by: Levofloxacin/Dextrose 500 mg/ (Premix) 100 mls @ 100 mls/hr IV ONETIME ONE Stop: 11/02/20 12:28 Last Admin: 11/02/20 13:00 Dose: 100 mls/hr Documented by: Dextrose/Sodium Chloride (Dextrose 5%-Normal Saline) Confirm Administered Dose 1,000 mls @ as directed .ROUTE .STK-MED ONE Stop: 11/02/20 12:51 Last Admin: 11/02/20 13:26 Dose: Not Given Documented by: Dextrose/Sodium Chloride (Dextrose 5%-Normal Saline) 1,000 mls @ 100 mls/hr IV ASDIRECTED [facility] Last Admin: 11/03/20 08:03 Dose: 100 mls/hr Documented by: Magnesium Sulfate 2 gm/ Premix 50 mls @ 25 mls/hr IV ONETIME ONE Stop: 11/03/20 05:09 Last Admin: 11/03/20 03:37 Dose: 25 mls/hr Documented by: Vancomycin HCl 1 gm/ Sodium (Chloride) 250 mls @ 167 mls/hr IV Q12H [facility] Last Admin: 11/03/20 21:05 Dose: 167 mls/hr Documented by: Sodium Chloride (Normal Saline) 250 mls @ 50 mls/hr IV ASDIRECTED [facility] Levofloxacin/Dextrose 250 mg/ (Premix) 50 mls @ 50 mls/hr IV Q24H [facility] Last Admin: 11/03/20 16:32 Dose: 50 mls/hr Documented by: Levofloxacin/Dextrose 500 mg/ (Premix) 100 mls @ 100 mls/hr IV Q24H [facility] Last Admin: 11/03/20 15:12 Dose: 100 mls/hr Documented by: Magnesium Sulfate 2 gm/ Premix 50 mls @ 150 mls/hr IV ONETIME ONE Stop: 11/03/20 11:16 Last Admin: 11/03/20 19:22 Dose: Not Given Documented by: Sodium Chloride (Normal Saline) 1,000 mls @ 50 mls/hr IV ASDIRECTED ONE Stop: 11/04/20 10:42 Last Admin: 11/03/20 15:05 Dose: 50 mls/hr Documented by: Lorazepam (Lorazepam 2 Mg/Ml Sdv) Confirm Administered Dose 2 mg .ROUTE .STK-MED ONE Stop: 11/03/20 10:11 Last Admin: 11/03/20 10:25 Dose: Not Given Documented by: Methylprednisolone Sodium Succinate (Methylprednisolone Sodium Succinate 125 Mg/2 Ml Sdv) 60 mg IVPUSH ONETIME ONE Stop: 11/02/20 18:15 Last Admin: 11/02/20 18:44 Dose: 60 mg Documented by: Methylprednisolone Sodium Succinate (Methylprednisolone Sodium Succinate 125 Mg/2 Ml Sdv) 60 mg IVPUSH Q8H [facility] Last Admin: 11/03/20 19:18 Dose: 60 mg Documented by: Morphine Sulfate (Morphine 2 Mg/Ml Syringe) 1 mg IVPUSH Q4H PRN PRN Reason: Agitation Last Admin: 11/03/20 08:25 Dose: 1 mg Documented by: Morphine Sulfate (Morphine 2 Mg/Ml Syringe) 1 mg IVPUSH Q8H PRN PRN Reason: Agitation Sodium Chloride (Sodium Chloride 0.9% 10 Ml Syringe) 10 ml FLUSH Q8HR PRN PRN Reason: keep vein open Vancomycin HCl (Pharmacy To Dose - Vancomycin) 1 dose .XX DAILY [facility] Last Admin: 11/04/20 00:10 Dose: Not Given Documented by: - Exam Urinary Catheter Total Time: 2Days 21Hours - Patient Data Result Diagrams: 11/04/20 07:05 11/04/20 07:05 Trevin Results Last 24 hrs: Microbiology 11/02/20 10:53 Aerobic Blood Culture - Preliminary Blood - Venous NO GROWTH AFTER 3 DAYS Anaerobic Blood Culture - Preliminary NO GROWTH AFTER 3 DAYS 11/02/20 11:05 Bacterial ID and Susceptibility - Final Urine Klebsiella Pneumonia Ss Pneumo 11/02/20 10:53 Aerobic Blood Culture - Preliminary Blood - Venous - Lab Draw NO GROWTH AFTER 3 DAYS Anaerobic Blood Culture - Preliminary NO GROWTH AFTER 3 DAYS Sepsis Event Note - Evaluation Sepsis Screening Result: Severe Sepsis Risk - Plan Plan:: Brief history summary, Ms Arora is a 75-year-old female that has been medically deteriorating over the past few weeks mainly the past 2 weeks was admitted yesterday due to sepsis thought to be urological etiology. She came through ED from the group home with hypoxia shortness of breath with hypotension seem to be responding with fluids. She was placed on antibiotics, steroids, IV fluid resuscitation Hospital course 11/03/2020; this morning during rounds patient will only open eyes when spoken to, thrashing around in bed, acutely agitated to the point to where nurses reported fell OOB after climibing over the rails, not cooperative--acute agitation. Afebrile however tachycardia, blood pressure adequate, O2 nasal cannula 4 to 5 L, mouth breathing with tachypnea. Adequate output via indwelling Montoya catheter--however urine is darkening up. Repeat chest x-ray, cardiomegaly with vascular congestion, patchy airspace edema with pleural effusion and possible infiltrate. Ativan IV push given, patient much more calm however nurses reported during suctioning large amount of dark emesis 11/04/2020; patient had significant dark emesis approximately 1 L between 2 voluminous emesis yesterday, nurses reported not able to pass NG tube, Protonix added, instructed nurses could put an OG if needed however patient has not had any emesis since. Resting comfortably. Received a call last night regarding tachypneic, low blood pressure, stopped all antibiotics, steroids, placed in comfort care palliative care Primary hospital problems --Acute respiratory failure Chronic problems Hypercholesterolemia, Hold ALL PO meds. Venous insufficiency/Chronic lymphedema, wide renata-wraps, will also help support BP Obesity, Trigeminal neuralgia, carbamazepine therapy, Hold ALL PO meds. Vitamin D deficiency, supplemental vitamin D. Hold ALL PO meds. GERD/without esophagitis, Added Protonix IVP Osteoporosis, Fosamax Hold ALL PO meds. Osteoarthritis bilateral knees Disposition/overall plan --Patient was placed in comfort/palliative care, family at bedside holding amezquita at bedside, quite comfortable, morphine Ativan as directed as needed. Suction, Lindsay Xie for dignity. Spent time with family this morning, many questions answered, they are very appreciative of the care received here at [facility], thank you nurses for excellent end-of-life care--a testament to training and character. Expectant management
--- NOTE | 2020-11-05 14:07 | PCM.DCSUM1 ---
Discharge Summary - Hospital Course Free Text/Narrative:: Brief history summary, Ms Arora is a 75-year-old female that has been medically deteriorating over the past few weeks mainly the past 2 weeks was admitted yesterday due to sepsis thought to be urological etiology. [facility] with hypoxia shortness of breath with hypotension seem to be responding with fluids. She was placed on antibiotics, steroids, IV fluid resuscitation Hospital course 11/03/2020; this morning during rounds patient will only open eyes when spoken to, thrashing around in bed, acutely agitated to the point to where nurses reported fell OOB after climibing over the rails, not cooperative--acute agitation. Afebrile however tachycardia, blood pressure adequate, O2 nasal cannula 4 to 5 L, mouth breathing with tachypnea. Adequate output via indwelling Brownlee catheter--however urine is darkening up. Repeat chest x-ray, cardiomegaly with vascular congestion, patchy airspace edema with pleural effusion and possible infiltrate. Ativan IV push given, patient much more calm however nurses reported during suctioning large amount of dark emesis 11/04/2020; patient had significant dark emesis approximately 1 L between 2 voluminous emesis yesterday, nurses reported not able to pass NG tube, Protonix added, instructed nurses could put an OG if needed however patient has not had any emesis since. Resting comfortably. Received a call last night regarding tachypneic, low blood pressure, stopped all antibiotics, steroids, placed in comfort care palliative care 11/05/20: Patient transitioned to swing bed status today for ongoing comfort care measures. Glycopyrrolate and morphine scheduled Q2H; ativan PRN agitation. Patient unresponsive, resting peacefully in bed today with family at bedside. Heart rate regular, lung sounds coarse, bowel sounds present. Skin warm and dry with no indication of mottling. Minimal urinary output in brownlee catheter. Continue repositioning, oral cares and suctioning PRN. Date of admission: 11/02/20 Date of discharge: 11/05/20 Admission diagnoses: # Acute respiratory failure Discharge diagnoses: # Hypercholesterolemia, Hold ALL PO meds. # Venous insufficiency/Chronic lymphedema, wide renata-wraps, will also help support BP # Dementia # Obesity # Trigeminal neuralgia, carbamazepine therapy, Hold ALL PO meds. # Vitamin D deficiency, supplemental vitamin D. Hold ALL PO meds. # GERD/without esophagitis, Added Protonix IVP # Osteoporosis, Fosamax Hold ALL PO meds. # Osteoarthritis bilateral knees Discharge and follow-up recommendations: - Discharge to swing bed status today. - New medications at discharge: HOLD all PO meds - continue comfort care medications of glycopyrrolate, morphine and ativan. - Dispostion - Will discharge to swing bed today. special services supervisor to coordinate with [facility] if patient has not passed by Saturday, 11/07 as patient has bed on hold there. [facility] [place] home chosen as preferred home by family. - Discharge Data Discharge Date: 11/05/20 Discharge Disposition: DC/Tfer W/I Hosp To Swing 61 Preliminary Cause of *Q: Other_Special Instruction Condition: Good - Referral to Home Health Primary Care Physician: Dena Mcguire NP - Discharge Plan *PRESCRIPTION DRUG MONITORING PROGRAM REVIEWED*: Not Applicable *COPY OF PRESCRIPTION DRUG MONITORING REPORT IN PATIENT MONSE: Not Applicable Oxygen Therapy Mode: Nasal Cannula - Discharge Summary/Plan Comment DC Time >30 min.: Yes Total # of Minutes for Discharge Time: 35 - General Info Date of Service: 11/05/20 Subjective Update: Unable to obtain ROS due to comfort care status and unresponsive status - Patient Data Vitals - Most Recent: Last Vital Signs Temp 97.5 F 11/03/20 21:00 Pulse 118 H 11/04/20 08:51 Resp 26 H 11/04/20 08:51 BP 72/47 L 11/04/20 08:51 Pulse Ox 90 L 11/04/20 08:51 Weight - Most Recent: 162 lb 3 oz I&O - Last 24 hours: Intake & Output 11/04/20 11/05/20 11/05/20 22:59 06:59 14:59 Output Total 0 50 Balance 0 -50 PETR Results - Last 24 hrs: Microbiology 11/02/20 10:53 Aerobic Blood Culture - Preliminary Blood - Venous NO GROWTH AFTER 3 DAYS Anaerobic Blood Culture - Preliminary NO GROWTH AFTER 3 DAYS 11/02/20 11:05 Bacterial ID and Susceptibility - Final Urine Klebsiella Pneumonia Ss Pneumo 11/02/20 10:53 Aerobic Blood Culture - Preliminary Blood - Venous - Lab Draw NO GROWTH AFTER 3 DAYS Anaerobic Blood Culture - Preliminary NO GROWTH AFTER 3 DAYS Med Orders - Current: Current Medications Albuterol/Ipratropium (Albuterol/Ipratropium 3.0-0.5 Mg/3 Ml Neb Soln) 3 ml NEB Q2H PRN PRN Reason: dyspnoea Last Admin: 11/03/20 09:18 Dose: 3 ml Documented by: Glycopyrrolate (Glycopyrrolate 0.2 Mg/Ml Sdv) 0.2 mg IVPUSH Q2H PRN PRN Reason: Congestion Last Admin: 11/05/20 09:07 Dose: 0.2 mg Documented by: Lorazepam (Lorazepam 2 Mg/Ml Sdv) 0.5 mg IVPUSH Q6H PRN PRN Reason: Agitation Last Admin: 11/05/20 00:50 Dose: 0.5 mg Documented by: Morphine Sulfate (Morphine 2 Mg/Ml Syringe) 2 mg IVPUSH Q2H PRN PRN Reason: Agitation Last Admin: 11/05/20 09:09 Dose: 2 mg Documented by: Pantoprazole Sodium (Pantoprazole 40 Mg Vial) 40 mg IVPUSH DAILY [facility] Last Admin: 11/05/20 08:57 Dose: 40 mg Documented by: Discontinued Medications Albuterol/Ipratropium (Albuterol/Ipratropium 3.0-0.5 Mg/3 Ml Neb Soln) Confirm Administered Dose 3 ml .ROUTE .STK-MED ONE Stop: 11/02/20 12:50 Last Admin: 11/02/20 13:27 Dose: Not Given Documented by: Ceftriaxone Sodium (Ceftriaxone 1 Gm Vial) 1 gm IVPUSH Q24H [facility] Last Admin: 11/03/20 15:02 Dose: 1 gm Documented by: Furosemide (Furosemide 40 Mg/4 Ml Vial) 40 mg IVPUSH NOW ONE Stop: 11/03/20 10:53 Last Admin: 11/03/20 10:56 Dose: 40 mg Documented by: Glycopyrrolate (Glycopyrrolate 0.2 Mg/Ml Sdv) 0.2 mg IVPUSH Q4HR PRN PRN Reason: secretions Last Admin: 11/03/20 11:47 Dose: 0.2 mg Documented by: Glycopyrrolate (Glycopyrrolate 0.2 Mg/Ml Sdv) 0.2 mg IVPUSH ONETIME [facility] Last Admin: 11/03/20 12:44 Dose: 0.2 mg Documented by: Hydrocortisone Sodium Succinate (Hydrocortisone Sodium Succinate 100 Mg/2 Ml Sdv) 100 mg IVPUSH ONETIME ONE Stop: 11/03/20 03:09 Last Admin: 11/03/20 03:34 Dose: 100 mg Documented by: Sodium Chloride (Normal Saline) 1,000 mls @ 1,000 mls/hr IV BOLUS ONE; Protocol Stop: 11/02/20 11:18 Last Admin: 11/02/20 14:25 Dose: Not Given Documented by: Levofloxacin/Dextrose 250 mg/ (Premix) 50 mls @ 50 mls/hr IV ONETIME ONE Stop: 11/02/20 12:28 Last Admin: 11/02/20 14:00 Dose: 50 mls/hr Documented by: Levofloxacin/Dextrose 500 mg/ (Premix) 100 mls @ 100 mls/hr IV ONETIME ONE Stop: 11/02/20 12:28 Last Admin: 11/02/20 13:00 Dose: 100 mls/hr Documented by: Dextrose/Sodium Chloride (Dextrose 5%-Normal Saline) Confirm Administered Dose 1,000 mls @ as directed .ROUTE .STK-MED ONE Stop: 11/02/20 12:51 Last Admin: 11/02/20 13:26 Dose: Not Given Documented by: Dextrose/Sodium Chloride (Dextrose 5%-Normal Saline) 1,000 mls @ 100 mls/hr IV ASDIRECTED [facility] Last Admin: 11/03/20 08:03 Dose: 100 mls/hr Documented by: Magnesium Sulfate 2 gm/ Premix 50 mls @ 25 mls/hr IV ONETIME ONE Stop: 11/03/20 05:09 Last Admin: 11/03/20 03:37 Dose: 25 mls/hr Documented by: Vancomycin HCl 1 gm/ Sodium (Chloride) 250 mls @ 167 mls/hr IV Q12H [facility] Last Admin: 11/03/20 21:05 Dose: 167 mls/hr Documented by: Sodium Chloride (Normal Saline) 250 mls @ 50 mls/hr IV ASDIRECTED [facility] Levofloxacin/Dextrose 250 mg/ (Premix) 50 mls @ 50 mls/hr IV Q24H [facility] Last Admin: 11/03/20 16:32 Dose: 50 mls/hr Documented by: Levofloxacin/Dextrose 500 mg/ (Premix) 100 mls @ 100 mls/hr IV Q24H [facility] Last Admin: 11/03/20 15:12 Dose: 100 mls/hr Documented by: Magnesium Sulfate 2 gm/ Premix 50 mls @ 150 mls/hr IV ONETIME ONE Stop: 11/03/20 11:16 Last Admin: 11/03/20 19:22 Dose: Not Given Documented by: Sodium Chloride (Normal Saline) 1,000 mls @ 50 mls/hr IV ASDIRECTED ONE Stop: 11/04/20 10:42 Last Admin: 11/03/20 15:05 Dose: 50 mls/hr Documented by: Lorazepam (Lorazepam 2 Mg/Ml Sdv) Confirm Administered Dose 2 mg .ROUTE .STK-MED ONE Stop: 11/03/20 10:11 Last Admin: 11/03/20 10:25 Dose: Not Given Documented by: Methylprednisolone Sodium Succinate (Methylprednisolone Sodium Succinate 125 Mg/2 Ml Sdv) 60 mg IVPUSH ONETIME ONE Stop: 11/02/20 18:15 Last Admin: 11/02/20 18:44 Dose: 60 mg Documented by: Methylprednisolone Sodium Succinate (Methylprednisolone Sodium Succinate 125 Mg/2 Ml Sdv) 60 mg IVPUSH Q8H [facility] Last Admin: 11/03/20 19:18 Dose: 60 mg Documented by: Morphine Sulfate (Morphine 2 Mg/Ml Syringe) 1 mg IVPUSH Q4H PRN PRN Reason: Agitation Last Admin: 11/03/20 08:25 Dose: 1 mg Documented by: Morphine Sulfate (Morphine 2 Mg/Ml Syringe) 1 mg IVPUSH Q8H PRN PRN Reason: Agitation Sodium Chloride (Sodium Chloride 0.9% 10 Ml Syringe) 10 ml FLUSH Q8HR PRN PRN Reason: keep vein open Vancomycin HCl (Pharmacy To Dose - Vancomycin) 1 dose .XX DAILY [facility] Last Admin: 11/04/20 00:10 Dose: Not Given Documented by: - Exam Quality Assessment: Reports: Supplemental Oxygen, Urine Catheter General: Reports: Other (unresponsive) Neck: Reports: Supple Lungs: Reports: Rhonchi Cardiovascular: Reports: Regular Rate, Regular Rhythm GI/Abdominal Exam: Normal Bowel Sounds, Soft (Female) Exam: Deferred Rectal (Female) Exam: Deferred Extremities: Normal Inspection, No Pedal Edema, Normal Capillary Refill Skin: Reports: Warm, Dry, Intact Psy/Mental Status: Reports: Other
--- NOTE | 2020-12-07 00:18 | DISCH ---
DISCHARGE DIAGNOSIS: 1. Possible urosepsis. 2. Possible pneumonia. 3. History of hypercholesteremia. 4. History of dementia. 5. History of obesity. FINAL DIAGNOSIS: Acute respiratory failure with unresponsiveness. Other past medical diagnoses include trigeminal neuralgia, vitamin D deficiency, gastroesophageal reflux disease, osteoporosis and osteoarthritis both knees, and dementia. HOSPITAL COURSE: This is a 75-year-old patient, whose date of was 1945. She was initially admitted on 11/02/2020. She was admitted because of medical deterioration over the last few weeks. She was admitted initially because of suspected urological sepsis. She had also hypoxia and shortness of breath with hypotension. This responded to fluids. She was started on antibiotics, steroids, and IV fluid resuscitation. The patient was quite agitated and developed tachycardia, low blood pressure, and required oxygenation. Chest x-ray revealed cardiomegaly, vascular congestion, patchy airspace edema with pleural effusion and possible infiltrates. IV Ativan was given for agitation. She was continued on antibiotics. Her condition, however, deteriorated. She was transferred to swing bed status on 11/05. Comfort measures were given. The patient remained unresponsive and with family at the bedside on that date. /[id number]/MODL
== END 2020-11-05 14:13 | disposition swing bed (61) | DRG 871 ==
LOC: KA.ED 10:08 → KA.MS 11:49 → KA.ED 11:49
PROVIDERS: ADMIT Physician Assistant Medical; ATTEND Nurse Practitioner Family
DX: A41.9 Sepsis, unspecified organism (principal); J96.01 Acute respiratory failure with hypoxia; Z51.5 Encounter for palliative care; Z66 Do not resuscitate; E78.00 Pure hypercholesterolemia, unspecified; I89.0 Lymphedema, not elsewhere classified; K59.01 Slow transit constipation; F03.90 Unspecified dementia, unspecified severity, without behavioral disturbance, psychotic disturbance, mood disturbance, and anxiety; E66.9 Obesity, unspecified; G50.0 Trigeminal neuralgia; E55.9 Vitamin D deficiency, unspecified; M19.90 Unspecified osteoarthritis, unspecified site; K21.9 Gastro-esophageal reflux disease without esophagitis; M81.0 Age-related osteoporosis without current pathological fracture; M17.0 Bilateral primary osteoarthritis of knee; H54.7 Unspecified visual loss; K59.09 Other constipation; K44.9 Diaphragmatic hernia without obstruction or gangrene; R32 Unspecified urinary incontinence; F32.9 Major depressive disorder, single episode, unspecified; K52.9 Noninfective gastroenteritis and colitis, unspecified; G62.9 Polyneuropathy, unspecified; I50.9 Heart failure, unspecified; Z20.822 Contact with and (suspected) exposure to COVID-19; R45.1 Restlessness and agitation; Z68.28 Body mass index [BMI] 28.0-28.9, adult; Z86.718 Personal history of other venous thrombosis and embolism; Z98.49 Cataract extraction status, unspecified eye; Z98.51 Tubal ligation status; Z86.711 Personal history of pulmonary embolism; Z79.899 Other long term (current) drug therapy
CPT/HCPCS: 36415; 51702; 71045; 80048; 80053; 81001; 83605; 83735; 83880; 84484; 85025; 87040; 87086; 87088; 87186; 93005; 94640; 99284; 99285-25; C9113; J0696; J1720; J1940; J1956; J2060; J2270; J2930; J3370; J3475; J3490; J7030; J7042; J7050; J7620-GY; U0002

== ENCOUNTER 2020-11-05 13:13 | Inpatient (IN) | payer MEDICARE, BC ==
[2020-11-05] MEDS ORDERED: Sodium Chloride 0.9% 10 ML Syringe FLUSH PRN (14:08)
[2020-11-05] MEDS ORDERED: LORazepam 2 MG/ML SDV IVPUSH PRN (14:15)
--- NOTE | 2020-11-05 14:29 | PCM.HP.2 ---
H&P History of Present Illness - General Date of Service: 11/05/20 Admit Problem/Dx: Admission Diagnosis/Problem Admission Diagnosis/Problem Urosepsis - Related Data Allergies/Adverse Reactions: Allergies Allergy/AdvReac Type Severity Reaction Status Date / Time No Known Drug Allergies Allergy Cannot Verified 10/17/20 16:30 Remember Past Medical History - Past Health History Medical/Surgical History: Denies Medical/Surgical History HEENT History: Reports: Cataract, Impaired Vision, Sinusitis Cardiovascular History: Reports: Blood Clots/VTE/DVT, High Cholesterol Respiratory History: Reports: PE Gastrointestinal History: Reports: Chronic Constipation, Chronic Diarrhea, GERD, Hiatal Hernia Genitourinary History: Reports: Urinary Incontinence PIGMENT PUSHER History: Reports: Musculoskeletal History: Reports: Osteoarthritis Neurological History: Reports: Neuropathy, Peripheral Psychiatric History: Reports: Dementia, Depression Endocrine/Metabolic History: Reports: Obesity/BMI 30+ Dermatologic History: Reports: None - Infectious Disease History Infectious Disease History: Reports: Chicken Pox, Shingles - Past Surgical History Head Surgeries/Procedures: Reports: None HEENT Surgical History: Reports: Cataract Surgery Cardiovascular Surgical History: Reports: None Respiratory Surgical History: Reports: None Female Surgical History: Reports: Tubal Ligation Neurological Surgical History: Reports: None Musculoskeletal Surgical History: Reports: None Social & Family History - Family History Family Medical History: Unobtainable - Caffeine Use Caffeine Use: Reports: Coffee, Soda H&P Review of Systems - Review of Systems: Review Of Systems: See Below (unresponsive) Exam - Exam Exam: See Below - Exam Quality Assessment: Supplemental Oxygen, Urinary Catheter General: Other (unresponsive, comfort care end of life) Lungs: Decreased Breath Sounds, Rhonchi Cardiovascular: Regular Rate, Regular Rhythm, Tachycardia GI/Abdominal Exam: Normal Bowel Sounds, Soft, No Distention (Female) Exam: Deferred Rectal (Female) Exam: Deferred Extremities: No Pedal Edema Peripheral Pulses: 1+: Dorsalis Pedis (L), Dorsalis Pedis (R) Skin: Warm, Dry, Intact Problem List Initiated/Reviewed/Updated: Yes Orders Last 24hrs: Active Orders 24 hr Category Date Time Status Patient Status [ADT] Routine ADT 11/05/20 14:12 Active Communication Order [RC] BID Care 11/05/20 14:08 Active Brownlee Catheter Insertion [Insert Urinary Catheter] [OM. Care 11/05/20 14:08 Or dered PC] Q24H Oxygen Therapy [RC] ASDIRECTED Care 11/05/20 14:08 Active RT Aerosol Therapy [RC] ASDIRECTED Care 11/05/20 14:08 Active Urinary Catheter Assessment [RC] ASDIRECTED Care 11/05/20 14:08 Active Urinary Catheter Assessment [RC] ASDIRECTED Care 11/05/20 14:08 Active Glycopyrrolate [Robinul] Med 11/05/20 14:15 Active 0.2 mg IVPUSH Q2H LORazepam [Ativan] Med 11/05/20 14:15 Active 0.5 mg IVPUSH Q6H PRN Morphine Med 11/05/20 14:15 Active 2 mg IVPUSH Q2H Sodium Chloride 0.9% [Saline Flush] Med 11/05/20 14:08 Active 10 ml FLUSH Q8HR PRN Saline Lock Insert [OM.PC] Stat Oth 11/05/20 14:08 Ordered Resuscitation Status Routine Resus Stat 11/05/20 14:08 Ordered Medication Orders Glycopyrrolate (Glycopyrrolate 0.2 Mg/Ml Sdv) 0.2 mg IVPUSH Q2H VIKRAM Lorazepam (Lorazepam 2 Mg/Ml Sdv) 0.5 mg IVPUSH Q6H PRN PRN Reason: Agitation Morphine Sulfate (Morphine 2 Mg/Ml Syringe) 2 mg IVPUSH Q2H VIKRAM Sodium Chloride (Sodium Chloride 0.9% 10 Ml Syringe) 10 ml FLUSH Q8HR PRN PRN Reason: keep vein open Assessment/Plan Comment:: HPI summary: Ms Arora is a 75-year-old female that has been medically det eriorating over the past few weeks mainly the past 2 weeks was admitted yesterday due to sepsis thought to be urological etiology. [facility] with hypoxia shortness of breath with hypotension seem to be responding with fluids. She was placed on antibiotics, steroids, IV fluid resuscitation Hospital course 11/03/2020: this morning during rounds patient will only open eyes when spoken to, thrashing around in bed, acutely agitated to the point to where nurses reported fell OOB after climbing over the rails, not cooperative with acute agit ation. Afebrile however tachycardia, blood pressure adequate, O2 nasal cannula 4 to 5 L, mouth breathing with tachypnea. Adequate output via indwelling Brownlee catheter--however urine is darkening up. Repeat chest x-ray, cardiomegaly with vascular congestion, patchy airspace edema with pleural effusion and possible infiltrate. Ativan IV push given, patient much more calm however nurses reported during suctioning large amount of dark emesis 11/04/2020: patient had significant dark emesis approximately 1 L between 2 voluminous emesis yesterday, nurses reported not able to pass NG tube, Protonix added, instructed nurses could put an OG if needed however patient has not had any emesis since. Resting comfortably. Received a call last night regarding tachypneic, low blood pressure, stopped all antibiotics, steroids, placed in comfort care palliative care. 11/05/20: Patient transitioned to swing bed status today for ongoing comfort care measures. Glycopyrrolate and morphine scheduled Q2H; ativan PRN agitation. Patient unresponsive, resting peacefully in bed today with family at bedside. Heart rate regular, lung sounds coarse, bowel sounds present. Skin warm and dry with no indication of mottling. Minimal urinary output in brownlee catheter. Continue repositioning, oral cares and suctioning PRN. Hospitalization problems and plan: # Comfort care, end of life Chronic, stable conditions: # Hypercholesterolemia, Hold ALL PO meds. # Venous insufficiency/Chronic lymphedema, wide renata-wraps, will also help support BP # Dementia # Obesity # Trigeminal neuralgia, carbamazepine therapy, Hold ALL PO meds. # Vitamin D deficiency, supplemental vitamin D. Hold ALL PO meds. # GERD/without esophagitis, Added Protonix IVP # Osteoporosis, Fosamax Hold ALL PO meds. # Osteoarthritis bilateral knees Hospitalization details: # FEN: None # PPX: None # Code status: DNR/DNI Comfort measures # Emergency contact: DaughterJuliette # Disposition: Continue scheduled IV morphine; ativan and glycopyrrolate PRN. Anticipate natural in the next few days to week. [facility] home chosen as preferred home by family.
[2020-11-05] MEDS: Morphine 2 MG/ML SYRINGE IVPUSH SCH ×6 (15:24→23:58)
[2020-11-05] MEDS: Glycopyrrolate 0.2 MG/ML SDV IVPUSH SCH ×6 (15:25→23:58)
[2020-11-06] MEDS: Glycopyrrolate 0.2 MG/ML SDV IVPUSH SCH ×12 (02:05→22:00)
[2020-11-06] MEDS: Morphine 2 MG/ML SYRINGE IVPUSH SCH ×12 (02:05→22:00)
[2020-11-07] MEDS: Glycopyrrolate 0.2 MG/ML SDV IVPUSH SCH ×6 (00:05→10:23)
[2020-11-07] MEDS: Morphine 2 MG/ML SYRINGE IVPUSH SCH ×8 (00:05→14:17)
[2020-11-07] MEDS ORDERED: Glycopyrrolate 0.2 MG/ML SDV IVPUSH PRN (10:26)
== END 2020-11-07 14:50 | disposition expired | DRG 951 ==
LOC: UNDOADMIN 14:12 → KA.MS 14:12 → UNDOADMIN 14:14 → KA.MS 14:14
PROVIDERS: ADMIT Nurse Practitioner Family; ATTEND Nurse Practitioner Family
DX: Z51.5 Encounter for palliative care (principal); J18.9 Pneumonia, unspecified organism; J96.90 Respiratory failure, unspecified, unspecified whether with hypoxia or hypercapnia; A41.9 Sepsis, unspecified organism; E78.00 Pure hypercholesterolemia, unspecified; Z66 Do not resuscitate; I89.0 Lymphedema, not elsewhere classified; I87.2 Venous insufficiency (chronic) (peripheral); F03.90 Unspecified dementia, unspecified severity, without behavioral disturbance, psychotic disturbance, mood disturbance, and anxiety; E66.9 Obesity, unspecified; G50.0 Trigeminal neuralgia; E55.9 Vitamin D deficiency, unspecified; K21.9 Gastro-esophageal reflux disease without esophagitis; M81.0 Age-related osteoporosis without current pathological fracture; M17.0 Bilateral primary osteoarthritis of knee; R40.4 Transient alteration of awareness; H54.7 Unspecified visual loss; K59.09 Other constipation; K52.9 Noninfective gastroenteritis and colitis, unspecified; K44.9 Diaphragmatic hernia without obstruction or gangrene; R32 Unspecified urinary incontinence; G62.9 Polyneuropathy, unspecified; F32.9 Major depressive disorder, single episode, unspecified; Z86.711 Personal history of pulmonary embolism; Z86.19 Personal history of other infectious and parasitic diseases; Z86.718 Personal history of other venous thrombosis and embolism; Z98.49 Cataract extraction status, unspecified eye; Z98.51 Tubal ligation status; Z68.28 Body mass index [BMI] 28.0-28.9, adult; Z99.81 Dependence on supplemental oxygen
CPT/HCPCS: J2270; J3490